=== PATIENT | male | born 1980 | race African-American/Black ===

== ENCOUNTER 2020-09-04 18:54 | Inpatient (IN) | payer OTHER, SELFPAY ==
[2020-09-04] VITALS (11 sets, daily range): BP systolic 129–162; BP diastolic 63–95; PULSE 114–127; RESP 16–28; TEMP 36.6–36.8; O2SAT 95–100; BMI 40.8
--- NOTE | 2020-09-04 19:06 | DI.RAD.S_ITS ---
PROCEDURE: XR CHEST 1V INDICATIONS: suspected sepsis TECHNIQUE: One view of the chest was acquired. COMPARISON: None. FINDINGS: Surgical changes and devices: None. Lungs and pleura: Lungs are clear. No pleural effusions or pneumothorax. Mediastinum: Mediastinal contours appear normal. Heart size is normal. Bones and chest wall: No suspicious bony lesions. Overlying soft tissues appear unremarkable. IMPRESSION: No focal infiltrate, pleural effusion or pneumothorax. Dictated by: Barry Mac M.D. on 09/04/2020 at 19:39 Approved by: Barry Mac M.D. on 09/04/2020 at 19:40
[2020-09-04] MEDS: SODIUM CHLORIDE 0.9% 1,000 ML 1000 ML IV ×3 (19:19→20:58)
[2020-09-04 19:20] LABS: Add Manual Diff / Slide Review NO; Basophils Absolute Auto 0 /uL (0-100); Basophils Percent Auto 0.2 % (0-2); Eosinophils Absolute Auto 0 /uL (0-450); Eosinophils Percent Auto 0.1 % (2-4); Hematocrit 53.7 % (41-53); Hemoglobin 17.2 g/dL (13.5-17.5); Lymphocytes Absolute Auto 1400 /uL (1100-4500); Lymphocytes Percent Auto 20.1 % (25-40); Mean Corpuscular Hemoglobin 29.4 PG (26-34); Mean Corpuscular Volume 91.8 fL (80-100); Monocytes Absolute Auto 400 /uL (0-900); Monocytes Percent Auto 5.8 % (3-14); Neutrophils Absolute Auto 5100 /uL (1500-7000); Neutrophils Percent Auto 73.8 % (50-75); Platelet Count 230 X10^3/uL (150-400); Red Blood Cell Count 5.85 X10^6/uL (4.5-5.9); Red Cell Distribution Width 13.9 % (11.6-14.8)
[2020-09-04 19:26] LABS: COVID19 -Nasal RAPID Negative (Negative)
[2020-09-04 19:30] LABS: Alanine Aminotransferase 86 IU/L (<50); Albumin 5.1 g/dL (3.5-5.0); Albumin Globulin Ratio 1.2 (1.0-2.8); Alkaline Phosphatase 79 U/L (38-126); Aspartate Aminotransferase 37 IU/L (17-59); BUN Creatinine Ratio 19.7 (6-22); Bilirubin Total 0.7 mg/dL (0.2-1.3); Blood Urea Nitrogen 31 mg/dL (9-20); Calcium 9.1 mg/dL (8.4-10.2); Chloride 101 mmol/L (98-107); Globulin 4.1 g/dL (1.7-4.1); Lipase 275 U/L (23-300); Sodium 137 mmol/L (137-145); Total Protein 9.2 g/dL (6.3-8.2)
[2020-09-04 19:31] LABS: HEMOLYSIS 52 (0-50); Lactate (Lactic Acid) 2.2 mmol/L (0.7-2.1); Potassium 5.6 mmol/L (3.4-5.1)
[2020-09-04 19:32] LABS: Carbon Dioxide 7 mmol/L (22-32); Glucose 595 mg/dL (70-100)
[2020-09-04 19:39] LABS: INR 0.9 (0.9-1.3); Prothrombin Time 10.4 SECONDS (10.1-12.7)
[2020-09-04 19:42] LABS: PTT Partial Thromboplastin Tim 29 SECONDS (26.4-36.2)
[2020-09-04 19:45] LABS: Procalcitonin 0.08 ng/mL (<0.5)
[2020-09-04 19:47] LABS: PO2 ABG 96 mmHg (80-100)
[2020-09-04 19:48] LABS: Fractionated Inspired Oxygen 21; HCO3 ABG 10 mmol/L (22-26); Oxygen Saturation ABG 96 % (95-100); TCO2 ABG 10 mmol/L (21-31)
[2020-09-04 19:49] LABS: Ketones (Beta-Hydroxybutyrate) 10.36 mmol/L (<0.27)
[2020-09-04 19:49] LABS: PCO2 ABG 24.3 mmHg (35-45)
[2020-09-04 19:50] LABS: Alanine Aminotransferase 83 IU/L (<50); Albumin Globulin Ratio 1.3 (1.0-2.8); Alkaline Phosphatase 78 U/L (38-126); Aspartate Aminotransferase 36 IU/L (17-59); BUN Creatinine Ratio 19.6 (6-22); Bilirubin Total 0.6 mg/dL (0.2-1.3); Blood Urea Nitrogen 31 mg/dL (9-20); Calcium 9.1 mg/dL (8.4-10.2); Chloride 102 mmol/L (98-107); Estimated Glomerular Filt Rate 49.6 mL/min (>60); HEMOLYSIS 34 (0-50); Potassium 5.2 mmol/L (3.4-5.1); Sodium 137 mmol/L (137-145)
[2020-09-04 19:51] LABS: Carbon Dioxide 8 mmol/L (22-32)
[2020-09-04 19:52] LABS: Glucose 597 mg/dL (70-100)
--- NOTE | 2020-09-04 20:13 | ED_ITS ---
HPI - Weakness General Chief complaint: Weakness Stated complaint: fatigue,disoriented, pain all over Time Seen by Provider: 09/04/20 19:32 Source: patient and family () Mode of arrival: Wheelchair Limitations: no limitations History of Present Illness HPI Narrative: This is a 39-year-old male who comes to the emergency department with complaint of feeling fatigued, generally unwell, he states he has had some blurred vision. He has had some lower back pain on both sides that he has noted for several days. He states symptoms sort of started Tuesday to have been progressive. He denies fevers, no chest pain, no shortness of breath, no nausea or vomiting. Denies any abdominal pain patient has had polyuria as well as polydipsia, he denies any dysuria. No issues with bowel movements or swelling in his extremities. No known past medical history, patient has not been following regularly with a physician. No prior surgeries. No allergies to medications. Patient does not take any medications regularly. No tobacco, alcohol or illicit. He states his father has diabetes but no other family history. Patient has been seen in the past at the [facility]. Related Data Home Medications Medication Instructions Recorded Confirmed No Known Home Medications 09/04/20 09/04/20 Allergies Allergy/AdvReac Type Severity Reaction Status Date / Time No Known Drug Allergies Allergy Verified 09/04/20 19:19 Review of Systems Review of Systems ROS Unobtainable: All systems reviewed & are unremarkable except as noted in HPI and below Patient History Family History (Updated 09/04/20 @ 20:31 by Christina Oakes DO) Father Diabetes mellitus Social History household members: spouse Smoking Status: Never smoker Smoking Status: Never smoker alcohol intake frequency: other Substance Use Type: does not use Exam Narrative Exam Narrative: GENERAL: Alert and oriented x three, well-nourished male in mild distress. HEENT: Head normocephalic, atraumatic, EOMI, pupils reactive, face symmetric, moist mucous membranes NECK: Supple, full range of motion CARDIOVASCULAR: Tachycardic but regular rate and rhythm without murmurs, rubs or gallops. RESPIRATORY: Breath sounds equal bilaterally, no wheezes rales or rhonchi. Positive for tachypnea ABDOMEN: Soft, nontender. Normoactive bowel sounds all 4 quadrants. No guarding or rebound, rigidity, no mass : No CVA tenderness EXTREMITIES: Normal range of motion, no clubbing or edema. Neurovascularly intact NEUROLOGICAL: Cranial nerves II through XII grossly intact. Moving all extremities SKIN: Warm, dry, no petechiae, no rashes or lesions. Initial Vital Signs Initial Vital Signs: Vital Signs Temperature 98 F 09/04/20 19:00 Pulse Rate 125 H 09/04/20 19:00 Respiratory Rate 16 09/04/20 19:00 Blood Pressure 162/95 H 09/04/20 19:00 Pulse Oximetry 98 09/04/20 19:00 Course Orders Ordered: ED Orders 09/04/20 22:50 Phosphorous Stat Acetaminophen (Acetaminophen 325 Mg Tablet) 650 mg PO Q6HR PRN PRN Reason: Fever/Mild Pain (1-3) Al Hydrox/Mg Hydrox/Simethicone (Mag Hydrox/Alum/Simeth 30 Ml Udc) 30 ml PO Q6HR PRN PRN Reason: Dyspepsia Enoxaparin Sodium (Enoxaparin 40 Mg/0.4 Ml Syringe) 40 mg SUBCUT DAILY TARUN Potassium Chloride/Sodium Chloride (Ns With Kcl 20 Meq) 1,000 mls @ 150 mls/hr IV CONT TARUN Last Admin: 09/04/20 21:42 Dose: Not Given Documented by: ROSIE Dextrose/Sodium Chloride (Dextrose 5%-0.45% Ns) 1,000 mls @ 150 mls/hr IV CONT TARUN Last Admin: 09/05/20 03:02 Dose: Not Given Documented by: JOSÉ MIGUEL Sodium Chloride (Normal Saline 0.45%) 1,000 mls @ 150 mls/hr IV CONT TARUN Last Admin: 09/05/20 02:26 Dose: 150 mls/hr Documented by: JOSÉ MIGUEL INSULIN DRIP PREMIX (Myxredlin Drip Premix) 100 unit in 100 mls @ 6 mls/hr IV TITRATE TARUN; Protocol Last Titration: 09/05/20 05:02 Dose: 15 mls/hr Documented by: JOSÉ MIGUEL Cosigned by: OLIVER Titration: 09/05/20 03:59 Dose: 10 mls/hr Documented by: JOSÉ MIGUEL Cosigned by: OLIVER Titration: 09/05/20 03:07 Dose: 8 mls/hr Documented by: JOSÉ MIGUEL Cosigned by: OLIVER Admin: 09/05/20 02:40 Dose: 6 mls/hr Documented by: JOSÉ MIGUEL Halligned by: OLIVER Ketorolac Tromethamine (Ketorolac 10 Mg Tablet) 10 mg PO Q6H PRN PRN Reason: Pain, Moderate (4-6) Lisinopril (Lisinopril 10 Mg Tablet) 10 mg PO DAILY TARUN Naloxone HCl (Naloxone 0.4 Mg/Ml Vial) 0.2 mg IV Q2MIN PRN PRN Reason: Opiate Reversal Ondansetron HCl (Ondansetron 4 Mg Odt) 4 mg PO Q8HR PRN PRN Reason: Nausea And Vomiting Ondansetron HCl (Ondansetron 4 Mg/2 Ml Inj) 4 mg IV Q4HR PRN PRN Reason: Nausea And Vomiting Discontinued Medications Sodium Chloride (Normal Saline 0.9%) 1,000 mls @ 1,000 mls/hr IV BOLUS ONE Stop: 09/04/20 20:05 Last Infusion: 09/04/20 21:33 Dose: 0 mls/hr Documented by: Admin: 09/04/20 19:19 Dose: 1,000 mls/hr Documented by: JENNA Sodium Chloride (Normal Saline 0.9%) 1,000 mls @ 1,000 mls/hr IV BOLUS ONE Stop: 09/04/20 20:32 Last Admin: 09/04/20 20:14 Dose: 1,000 mls/hr Documented by: ROSIE Sodium Chloride (Normal Saline 0.9%) 1,000 mls @ 1,000 mls/hr IV BOLUS ONE Stop: 09/04/20 21:14 Last Admin: 09/04/20 20:58 Dose: 1,000 mls/hr Documented by: ROSIE INSULIN DRIP PREMIX (Myxredlin Drip Premix) 100 unit in 100 mls @ 10 mls/hr IV TITRATE TARUN; Protocol Last Admin: 09/04/20 21:33 Dose: Not Given Documented by: ROSIE Dextrose/Sodium Chloride (Dextrose 5%-0.45% Ns) 1,000 mls @ 150 mls/hr IV CONT TARUN Last Admin: 09/05/20 03:19 Dose: Not Given Documented by: JOSÉ MIGUEL Insulin Human Regular 100 unit (/ Sodium Chloride) 100 mls @ 6 mls/hr IV TITRATE TARUN; Protocol Last Admin: 09/05/20 03:20 Dose: Not Given Documented by: JOSÉ MIGUEL Insulin Human Regular (Insulin Regular 100 Unit/Ml 3 Ml Vial) 5 unit SUBCUT NOW ONE Stop: 09/04/20 22:35 Last Admin: 09/04/20 22:46 Dose: 5 unit Documented by: JOSÉ MIGUEL Cosigned by: PAIGE Insulin Human Regular (Insulin Regular 100 Unit/Ml 3 Ml Vial) 10 unit SUBCUT NOW ONE Stop: 09/04/20 23:37 Last Admin: 09/04/20 23:50 Dose: 10 unit Documented by: JOSÉ MIGUEL Cosigned by: OLIVER Insulin Human Regular (Insulin Regular 100 Unit/Ml 3 Ml Vial) 20 unit SUBCUT NOW ONE Stop: 09/05/20 00:42 Last Admin: 09/05/20 00:54 Dose: 20 unit Documented by: JOSÉ MIGUEL Cosigned by: OLIVER Lisinopril (Lisinopril 10 Mg Tablet) 10 mg PO NOW ONE Stop: 09/04/20 23:40 Last Admin: 09/04/20 23:54 Dose: 10 mg Documented by: JOSÉ MIGUEL Vital Signs Vital signs: Vital Signs - 8 hr 09/04/20 19:00 09/04/20 20:00 09/04/20 20:03 Temperature 98 F Pulse Rate 125 H 118 H 117 H Respiratory Rate 16 26 H Blood Pressure 162/95 H 129/63 Pulse Oximetry 98 99 96 09/04/20 20:30 09/04/20 21:00 Temperature Pulse Rate 117 H 116 H Respiratory Rate 27 H 27 H Blood Pressure 139/69 Pulse Oximetry 99 MDM - Weakness Lab Data Attestation: I reviewed the patient's lab results. Result diagrams: 09/05/20 04:30 09/04/20 22:50 Labs: Lab Results 09/04/20 09/04/20 09/04/20 Range/Units 19:02 19:07 19:07 WBC 7.0 (4.5-11.0) X10^3/uL RBC 5.85 (4.5-5.9) X10^6/uL Hgb 17.2 (13.5-17.5) g/dL Hct 53.7 H (41-53) % MCV 91.8 (80-100) fL MCH 29.4 (26-34) PG MCHC 32.0 (30-36) % RDW 13.9 (11.6-14.8) % Plt Count 230 (150-400) X10^3/uL Neut % (Auto) 73.8 (50-75) % Lymph % (Auto) 20.1 L (25-40) % Mcintosh % (Auto) 5.8 (3-14) % Eos % (Auto) 0.1 L (2-4) % Baso % (Auto) 0.2 (0-2) % Neut # (Auto) 5100 (9849-7873) /uL Lymph # (Auto) 1400 (1228-3526) /uL Mcintosh # (Auto) 400 (0-900) /uL Eos # (Auto) 0 (0-450) /uL Baso # (Auto) 0 (0-100) /uL PT (10.1-12.7) SECONDS INR (0.9-1.3) APTT (26.4-36.2) SECONDS ABG pH (7.35-7.45) ABG pCO2 (35-45) mmHg ABG pO2 (80-100) mmHg ABG HCO3 (22-26) mmol/L ABG Total CO2 (21-31) mmol/L ABG O2 Saturation (95-100) % ABG Base Excess (-2-2) mmol/L FiO2 Sodium (137-145) mmol/L Potassium (3.4-5.1) mmol/L Chloride (98-107) mmol/L Carbon Dioxide (22-32) mmol/L BUN (9-20) mg/dL Creatinine (0.66-1.25) mg/dL Estimated GFR (>60) mL/min BUN/Creatinine Ratio (6-22) Glucose (70-100) mg/dL Lactate (0.7-2.1) mmol/L Calcium (8.4-10.2) mg/dL Total Bilirubin (0.2-1.3) mg/dL AST (17-59) IU/L ALT (<50) IU/L Alkaline Phosphatase (38-126) U/L Total Protein (6.3-8.2) g/dL Albumin (3.5-5.0) g/dL Globulin (1.7-4.1) g/dL Albumin/Globulin Ratio (1.0-2.8) Lipase (23-300) U/L Procalcitonin 0.08 (<0.5) ng/mL Urine Color Urine Appearance Urine pH (4.5-8.0) Ur Specific [place] (1.000-1.035) Urine Protein (Negative) Urine Glucose (UA) (Negative) g/dL Urine Ketones (NEGATIVE) Urine Occult Blood (Negative) Urine Nitrate (Negative) Urine Bilirubin (NEGATIVE) Urine Urobilinogen (0.2) E.U./dL Ur Leukocyte Esterase (NEGATIVE) Urine RBC (0-5/HPF) Urine WBC (0-5/HPF) Ur Squamous Epith Cells (0-5/HPF) Ur Transition Epith Cell (0-5/HPF) Ur Renal Epithelial Cell (0-1/HPF) Amorphous Sediment Urine Bacteria (None) Hyaline Casts (None) Granular Casts (None) Ur Culture Indicated? U Opiates 300ng/mL cut (Negative) Ur Oxycodone Screen (Negative) Urine Methadone Screen (Negative) Ur Barbiturates Screen (Negative) U Tricyclic Antidepress (Negative) Ur Phencyclidine Scrn (Negative) Ur Amphetamines Screen (Negative) U Methamphetamines Scrn (Negative) Ur MDMA Scrn (Ecstasy) (Negative) U Benzodiazepines Scrn (Negative) Urine Cocaine Screen (Negative) U Marijuana (THC) Screen (Negative) Ketones (<0.27) mmol/L SARS-CoV-2 (PCR) Negative (Negative) Influenza A (RT-PCR) (NEGATIVE) Influenza B (RT-PCR) (NEGATIVE) 09/04/20 09/04/20 09/04/20 Range/Units 19:07 19:07 19:25 WBC (4.5-11.0) X10^3/uL RBC (4.5-5.9) X10^6/uL Hgb (13.5-17.5) g/dL Hct (41-53) % MCV (80-100) fL MCH (26-34) PG MCHC (30-36) % RDW (11.6-14.8) % Plt Count (150-400) X10^3/uL Neut % (Auto) (50-75) % Lymph % (Auto) (25-40) % Mcintosh % (Auto) (3-14) % Eos % (Auto) (2-4) % Baso % (Auto) (0-2) % Neut # (Auto) (4257-5996) /uL Lymph # (Auto) (3427-0613) /uL Mcintosh # (Auto) (0-900) /uL Eos # (Auto) (0-450) /uL Baso # (Auto) (0-100) /uL PT 10.4 (10.1-12.7) SECONDS INR 0.9 (0.9-1.3) APTT 29 (26.4-36.2) SECONDS ABG pH (7.35-7.45) ABG pCO2 (35-45) mmHg ABG pO2 (80-100) mmHg ABG HCO3 (22-26) mmol/L ABG Total CO2 (21-31) mmol/L ABG O2 Saturation (95-100) % ABG Base Excess (-2-2) mmol/L FiO2 Sodium 137 (137-145) mmol/L Potassium 5.6 H (3.4-5.1) mmol/L Chloride 101 (98-107) mmol/L Carbon Dioxide 7 L* (22-32) mmol/L BUN 31 H (9-20) mg/dL Creatinine 1.57 H (0.66-1.25) mg/dL Estimated GFR 50.0 L (>60) mL/min BUN/Creatinine Ratio 19.7 (6-22) Glucose 595 H* (70-100) mg/dL Lactate 2.2 H (0.7-2.1) mmol/L Calcium 9.1 (8.4-10.2) mg/dL Total Bilirubin 0.7 (0.2-1.3) mg/dL AST 37 (17-59) IU/L ALT 86 H (<50) IU/L Alkaline Phosphatase 79 (38-126) U/L Total Protein 9.2 H (6.3-8.2) g/dL Albumin 5.1 H (3.5-5.0) g/dL Globulin 4.1 (1.7-4.1) g/dL Albumin/Globulin Ratio 1.2 (1.0-2.8) Lipase 275 (23-300) U/L Procalcitonin (<0.5) ng/mL Urine Color Urine Appearance Urine pH (4.5-8.0) Ur Specific [place] (1.000-1.035) Urine Protein (Negative) Urine Glucose (UA) (Negative) g/dL Urine Ketones (NEGATIVE) Urine Occult Blood (Negative) Urine Nitrate (Negative) Urine Bilirubin (NEGATIVE) Urine Urobilinogen (0.2) E.U./dL Ur Leukocyte Esterase (NEGATIVE) Urine RBC (0-5/HPF) Urine WBC (0-5/HPF) Ur Squamous Epith Cells (0-5/HPF) Ur Transition Epith Cell (0-5/HPF) Ur Renal Epithelial Cell (0-1/HPF) Amorphous Sediment Urine Bacteria (None) Hyaline Casts (None) Granular Casts (None) Ur Culture Indicated? U Opiates 300ng/mL cut (Negative) Ur Oxycodone Screen (Negative) Urine Methadone Screen (Negative) Ur Barbiturates Screen (Negative) U Tricyclic Antidepress (Negative) Ur Phencyclidine Scrn (Negative) Ur Amphetamines Screen (Negative) U Methamphetamines Scrn (Negative) Ur MDMA Scrn (Ecstasy) (Negative) U Benzodiazepines Scrn (Negative) Urine Cocaine Screen (Negative) U Marijuana (THC) Screen (Negative) Ketones (<0.27) mmol/L SARS-CoV-2 (PCR) (Negative) Influenza A (RT-PCR) (NEGATIVE) Influenza B (RT-PCR) (NEGATIVE) 09/04/20 09/04/20 09/04/20 Range/Units 19:25 19:41 19:55 WBC (4.5-11.0) X10^3/uL RBC (4.5-5.9) X10^6/uL Hgb (13.5-17.5) g/dL Hct (41-53) % MCV (80-100) fL MCH (26-34) PG MCHC (30-36) % RDW (11.6-14.8) % Plt Count (150-400) X10^3/uL Neut % (Auto) (50-75) % Lymph % (Auto) (25-40) % Mcintosh % (Auto) (3-14) % Eos % (Auto) (2-4) % Baso % (Auto) (0-2) % Neut # (Auto) (7879-0565) /uL Lymph # (Auto) (4009-6318) /uL Mcintosh # (Auto) (0-900) /uL Eos # (Auto) (0-450) /uL Baso # (Auto) (0-100) /uL PT (10.1-12.7) SECONDS INR (0.9-1.3) APTT (26.4-36.2) SECONDS ABG pH 7.20 L* (7.35-7.45) ABG pCO2 24.3 L* (35-45) mmHg ABG pO2 96 (80-100) mmHg ABG HCO3 10 L (22-26) mmol/L ABG Total CO2 10 L (21-31) mmol/L ABG O2 Saturation 96 (95-100) % ABG Base Excess -18.0 L (-2-2) mmol/L FiO2 21 Sodium 137 (137-145) mmol/L Potassium 5.2 H (3.4-5.1) mmol/L Chloride 102 (98-107) mmol/L Carbon Dioxide 8 L* (22-32) mmol/L BUN 31 H (9-20) mg/dL Creatinine 1.58 H (0.66-1.25) mg/dL Estimated GFR 49.6 L (>60) mL/min BUN/Creatinine Ratio 19.6 (6-22) Glucose 597 H* (70-100) mg/dL Lactate (0.7-2.1) mmol/L Calcium 9.1 (8.4-10.2) mg/dL Total Bilirubin 0.6 (0.2-1.3) mg/dL AST 36 (17-59) IU/L ALT 83 H (<50) IU/L Alkaline Phosphatase 78 (38-126) U/L Total Protein 9.0 H (6.3-8.2) g/dL Albumin 5.0 (3.5-5.0) g/dL Globulin 4.0 (1.7-4.1) g/dL Albumin/Globulin Ratio 1.3 (1.0-2.8) Lipase (23-300) U/L Procalcitonin (<0.5) ng/mL Urine Color Yellow Urine Appearance Clear Urine pH 5.5 (4.5-8.0) Ur Specific [place] 1.020 (1.000-1.035) Urine Protein 2+ H (Negative) Urine Glucose (UA) 1+ H (Negative) g/dL Urine Ketones 3+ H (NEGATIVE) Urine Occult Blood 3+ H (Negative) Urine Nitrate Negative (Negative) Urine Bilirubin Negative (NEGATIVE) Urine Urobilinogen 0.2 (0.2) E.U./dL Ur Leukocyte Esterase Negative (NEGATIVE) Urine RBC 1-5/hpf (0-5/HPF) Urine WBC 0-1/hpf (0-5/HPF) Ur Squamous Epith Cells 0-1 /hpf (0-5/HPF) Ur Transition Epith Cell 0-1/hpf (0-5/HPF) Ur Renal Epithelial Cell 0-1/hpf (0-1/HPF) Amorphous Sediment 1+ Urine Bacteria None seen (None) Hyaline Casts 1-5/lpf (None) Granular Casts 0-1/lpf (None) Ur Culture Indicated? Cult not indicated U Opiates 300ng/mL cut (Negative) Ur Oxycodone Screen (Negative) Urine Methadone Screen (Negative) Ur Barbiturates Screen (Negative) U Tricyclic Antidepress (Negative) Ur Phencyclidine Scrn (Negative) Ur Amphetamines Screen (Negative) U Methamphetamines Scrn (Negative) Ur MDMA Scrn (Ecstasy) (Negative) U Benzodiazepines Scrn (Negative) Urine Cocaine Screen (Negative) U Marijuana (THC) Screen (Negative) Ketones 10.36 H (<0.27) mmol/L SARS-CoV-2 (PCR) (Negative) Influenza A (RT-PCR) (NEGATIVE) Influenza B (RT-PCR) (NEGATIVE) 09/04/20 09/04/20 Range/Units 19:55 21:10 WBC (4.5-11.0) X10^3/uL RBC (4.5-5.9) X10^6/uL Hgb (13.5-17.5) g/dL Hct (41-53) % MCV (80-100) fL MCH (26-34) PG MCHC (30-36) % RDW (11.6-14.8) % Plt Count (150-400) X10^3/uL Neut % (Auto) (50-75) % Lymph % (Auto) (25-40) % Mcintosh % (Auto) (3-14) % Eos % (Auto) (2-4) % Baso % (Auto) (0-2) % Neut # (Auto) (0811-8183) /uL Lymph # (Auto) (3561-7481) /uL Mcintosh # (Auto) (0-900) /uL Eos # (Auto) (0-450) /uL Baso # (Auto) (0-100) /uL PT (10.1-12.7) SECONDS INR (0.9-1.3) APTT (26.4-36.2) SECONDS ABG pH (7.35-7.45) ABG pCO2 (35-45) mmHg ABG pO2 (80-100) mmHg ABG HCO3 (22-26) mmol/L ABG Total CO2 (21-31) mmol/L ABG O2 Saturation (95-100) % ABG Base Excess (-2-2) mmol/L FiO2 Sodium (137-145) mmol/L Potassium (3.4-5.1) mmol/L Chloride (98-107) mmol/L Carbon Dioxide (22-32) mmol/L BUN (9-20) mg/dL Creatinine (0.66-1.25) mg/dL Estimated GFR (>60) mL/min BUN/Creatinine Ratio (6-22) Glucose (70-100) mg/dL Lactate (0.7-2.1) mmol/L Calcium (8.4-10.2) mg/dL Total Bilirubin (0.2-1.3) mg/dL AST (17-59) IU/L ALT (<50) IU/L Alkaline Phosphatase (38-126) U/L Total Protein (6.3-8.2) g/dL Albumin (3.5-5.0) g/dL Globulin (1.7-4.1) g/dL Albumin/Globulin Ratio (1.0-2.8) Lipase (23-300) U/L Procalcitonin (<0.5) ng/mL Urine Color Urine Appearance Urine pH (4.5-8.0) Ur Specific [place] (1.000-1.035) Urine Protein (Negative) Urine Glucose (UA) (Negative) g/dL Urine Ketones (NEGATIVE) Urine Occult Blood (Negative) Urine Nitrate (Negative) Urine Bilirubin (NEGATIVE) Urine Urobilinogen (0.2) E.U./dL Ur Leukocyte Esterase (NEGATIVE) Urine RBC (0-5/HPF) Urine WBC (0-5/HPF) Ur Squamous Epith Cells (0-5/HPF) Ur Transition Epith Cell (0-5/HPF) Ur Renal Epithelial Cell (0-1/HPF) Amorphous Sediment Urine Bacteria (None) Hyaline Casts (None) Granular Casts (None) Ur Culture Indicated? U Opiates 300ng/mL cut Negative (Negative) Ur Oxycodone Screen Negative (Negative) Urine Methadone Screen Negative (Negative) Ur Barbiturates Screen Negative (Negative) U Tricyclic Antidepress Negative (Negative) Ur Phencyclidine Scrn Negative (Negative) Ur Amphetamines Screen Negative (Negative) U Methamphetamines Scrn Negative (Negative) Ur MDMA Scrn (Ecstasy) Negative (Negative) U Benzodiazepines Scrn Negative (Negative) Urine Cocaine Screen Negative (Negative) U Marijuana (THC) Screen Negative (Negative) Ketones (<0.27) mmol/L SARS-CoV-2 (PCR) (Negative) Influenza A (RT-PCR) Flu a negative (NEGATIVE) Influenza B (RT-PCR) Flu b negative (NEGATIVE) Point of Care Testing Glucose POC 380 Urine Dip Bedside Urine Glucose 1000 mg/dl Bedside Urine Bilirubin - Negative Bedside Urine Ketone +++ 80 Urine Specific [place] 1.025 Bedside Urine Occult Blood ++ Bedside Urine pH 6.0 Bedside Urine Protein + 30 Bedside Urine Urobilinogen - Negative Bedside Urine Nitrite - Negative Bedside Urine Leukocytes - Negative Esterase Imaging Data Chest x-ray: Radiologist Impression: [address] [id number] ReportSigned Patient: Nicholas Burrell#: [id number]: 1980Acct:[id number]/Sex: 39 / MDate of Service: 09/04/20Loc: EDAccession Number: [id number] Procedure: XR chest 1V Ordering Provider: Christina Oakes D.O. PROCEDURE: XR CHEST 1V INDICATIONS: suspected sepsis TECHNIQUE: One view of the chest was acquired. COMPARISON: None. FINDINGS: Surgical changes and devices: None. Lungs and pleura: Lungs are clear. No pleural effusions or pneumothorax. Mediastinum: Mediastinal contours appear normal. Heart size is normal. Bones and chest wall: No suspicious bony lesions. Overlying soft tissues appear unremarkable. IMPRESSION: No focal infiltrate, pleural effusion or pneumothorax. Dictated by: Barry Mac M.D. on 09/04/2020 at 19:39 Approved by: Barry Mac M.D. on 09/04/2020 at 19:40 KUB: Radiologist Impression: [address] [id number] Scan ReportSigned Patient: Nicholas BurrellMR#: [id number]: 1980Acct:[id number]/Sex: 39 / MDate of Service: 09/04/20Loc: EDAccession Number: [id number] Procedure: CT kidney ureter bladder (KUB) Ordering Provider: Christina Oakes D.O. PROCEDURE: CT KIDNEY URETER BLADDER (KUB) INDICATIONS: dka, hematuria, back pain TECHNIQUE: Noncontrast 5 mm thick sections acquired from the diaphragms to the symphysis. 5 mm thick coronal and sagittal reformats were then performed. For radiation dose reduction, the following was used: automated exposure control, adjustment of mA and/or kV according to patient size. COMPARISON: None. FINDINGS: Image quality: Excellent. Lung bases: Lung bases are clear. Heart size is normal. Urinary system: Both kidneys are normal in size. No kidney stones. No hydronephrosis or perinephric fat stranding. Both ureters appear non-dilated throughout their expected courses. Bladder wall thickness is normal; no calcified bladder stones. Other solid organs: Liver is normal in size. Moderate to severe hepatic steatosis is seen. Gallbladder is within normal limits.. Pancreas is normal in contours. Spleen is normal in size. No adrenal nodules. Peritoneum and bowel: Unenhanced bowel loops demonstrate normal wall thickness and caliber. No free fluid or air. Appendix is visualized and is within normal limits. Nodes and vessels: No retroperitoneal or mesenteric adenopathy by size criteria. Aorta and inferior vena cava are normal in caliber. Abdominal wall: No ventral hernias. Pelvis: No free pelvic fluid. No inguinal hernias or adenopathy. Bones: No suspicious bony lesions. No vertebral body compression fractures. IMPRESSION: 1. No renal stone or hydronephrosis. Normal appearing bilateral ureters and urinary bladder. 2. Severe hepatic steatosis. No discrete hepatic lesion. 3. Normal appendix. No bowel obstruction. No abnormal bowel wall thickening. No free fluid or free air. Dictated by: Barry Mac M.D. on 09/04/2020 at 20:52 Approved by: Barry Mac M.D. on 09/04/2020 at 20:56 ECG Data Attestation: I personally reviewed and interpreted this ECG as follows: Interpretation: Sinus tachycardia, rate of 125, MO 148, QRS 86 and QTC of 450. Nonspecific change. MDM Narrative Medical decision making narrative: This is a 39-year-old male with no known prior diagnosed diabetes in DKA. Patient is acidotic, his bicarb is of 27 on corrected. Patient has likely acute kidney injury but with a creatinine 1.58 and glucose of 597. On point of care urine and he has been complaining of some lower back pain so CT KUB was ordered to evaluate for stones. No signs of infection on urine. covid swab is negative. Patient accepted by [facility]. Insulin gtt ordered and NS 150 w/ 20meq Kl ordered but they would like to try subcutaneous insulin is patient's glucose has dropped very quickly on recheck with Accu-Chek. Orders were given by the nurse practitioner to nursing patient was transferred to the ICU. Critical Care Time Critical Care Time Critical Care Time: Yes Total Critical Care Time: 90 Attestation: The high probability of a clinically significant, sudden or life threatening deterioration of the [cardiac, pulm, neuro] system(s) required my full and direct attention, intervention and personal management. The aggregate critical care time was [90] minutes. This time is in addition to time spent performing reported procedures but includes the following: [x] Data Review and interpretation [x] Patient assessment and monitoring of vital signs [x] Documentation [x] Medication orders and management Discharge Plan Departure Patient Disposition: Admitted As Inpatient Clinical Impression: DKA (diabetic ketoacidoses), Acute kidney injury Admit Date/Time: 09/04/20 21:14 Admit Provider: Cheyanne Samuel
[2020-09-04 20:14] LABS: Bacteria Urine None Seen
[2020-09-04 20:15] LABS: Appearance Urine UA CLEAR; Bilirubin Urine UA NEGATIVE (NEGATIVE); Color Urine UA YELLOW; Glucose Urine UA 1+ g/dL (Negative); Ketones Urine UA 3+ (NEGATIVE); Leukocyte Esterase Urine UA NEGATIVE (NEGATIVE); Nitrite Urine UA NEGATIVE (Negative); Occult Blood Urine UA 3+ (Negative); Protein Urine UA 2+ (Negative); Urobilinogen Urine UA 0.2 E.U./dL (0.2); pH Urine UA 5.5 (4.5-8.0)
[2020-09-04 20:27] LABS: Amorphous Sediment Urine 1+; Culture Indicated Urine Cult Not Indicated; Granular Casts Urine 0-1/LPF; Hyaline Casts Urine 1-5/LPF; RBC Urine 1-5/HPF (0-5/HPF); Renal Epithelial Cells Urine 0-1/HPF (0-1/HPF); Squamous Epithelial Cell Urine 0-1 /HPF (0-5/HPF); Transitional Epi Cells Urine 0-1/HPF (0-5/HPF); WBC Urine 0-1/HPF (0-5/HPF)
--- NOTE | 2020-09-04 20:29 | DI.CT.S_ITS ---
PROCEDURE: CT KIDNEY URETER BLADDER (KUB) INDICATIONS: dka, hematuria, back pain TECHNIQUE: Noncontrast 5 mm thick sections acquired from the diaphragms to the symphysis. 5 mm thick coronal and sagittal reformats were then performed. For radiation dose reduction, the following was used: automated exposure control, adjustment of mA and/or kV according to patient size. COMPARISON: None. FINDINGS: Image quality: Excellent. Lung bases: Lung bases are clear. Heart size is normal. Urinary system: Both kidneys are normal in size. No kidney stones. No hydronephrosis or perinephric fat stranding. Both ureters appear non-dilated throughout their expected courses. Bladder wall thickness is normal; no calcified bladder stones. Other solid organs: Liver is normal in size. Moderate to severe hepatic steatosis is seen. Gallbladder is within normal limits.. Pancreas is normal in contours. Spleen is normal in size. No adrenal nodules. Peritoneum and bowel: Unenhanced bowel loops demonstrate normal wall thickness and caliber. No free fluid or air. Appendix is visualized and is within normal limits. Nodes and vessels: No retroperitoneal or mesenteric adenopathy by size criteria. Aorta and inferior vena cava are normal in caliber. Abdominal wall: No ventral hernias. Pelvis: No free pelvic fluid. No inguinal hernias or adenopathy. Bones: No suspicious bony lesions. No vertebral body compression fractures. IMPRESSION: 1. No renal stone or hydronephrosis. Normal appearing bilateral ureters and urinary bladder. 2. Severe hepatic steatosis. No discrete hepatic lesion. 3. Normal appendix. No bowel obstruction. No abnormal bowel wall thickening. No free fluid or free air. Dictated by: Barry Mac M.D. on 09/04/2020 at 20:52 Approved by: Barry Mac M.D. on 09/04/2020 at 20:56
[2020-09-04 21:15] LABS: Reflexed Lactate in 2 Hours Y
--- NOTE | 2020-09-04 21:23 | PC.NURSE ---
Notified Dr Samuel of BG of 380, order to hold insulin, and recheck in 1 hr while hydrating.
[2020-09-04 21:53] LABS: Influenza A - CEPHEID Flu A NEGATIVE (NEGATIVE); Influenza B - CEPHEID Flu B NEGATIVE (NEGATIVE)
--- NOTE | 2020-09-04 22:39 | RT ---
Addendum entered by Elvia Jay, RT 09/04/20 23:55: Discussed with OSWALD Samuel that ABG Q4 until pH to normalizes is inappropriate at this time. VBGs will suffice for pH readings. OSWALD Samuel aware of VBGs Q4 instead of ABGs. Pending new lab orders from OSWALD Samuel. RN aware as well. Addendum entered by Elvia Jay, RT 09/04/20 22:46: Discussed with OSWALD Samuel that ABG Q4 for pH to normalize is inappropriate at this time. VBGs will suffice for pH readings. OSWALD Samuel aware of VBGs Q4 instead of ABGs. Pending new lab orders. RN aware as well. Original Note: Discussed with OSWALD Samuel that ABG Q4 for pH to normalize is inappropriate at this time. VBGs will suffice for pH readings. OSWALD Samuel aware of VBGs Q4 instead of ABGs. Pending new lab orders.
[2020-09-04] MEDS: INSULIN REGULAR 100 UNIT/ML 3 ML VIAL SUBCUT (22:46)
[2020-09-04 23:10] LABS: UR Morphine/Opiate cutoff 300 Negative (Negative); Ur Creatinine 20 (Normal); Ur Specific Gravity 1.025 (Normal); Urine Amphetamines Negative (Negative); Urine Barbiturates Negative (Negative); Urine Benzodiazepines Negative (Negative); Urine Cocaine Negative (Negative); Urine MDMA Negative (Negative); Urine Methadone Negative (Negative); Urine Methamphetamines Negative (Negative); Urine Oxycodone Negative (Negative); Urine Phencyclidine Negative (Negative); Urine Tetrahydrocannabinol Negative (Negative); Urine Tricyclic Antidepressant Negative (Negative); Urine pH 5 (Normal)
--- NOTE | 2020-09-04 23:14 | PC.NURSE ---
Addendum entered by Mary Beasley R.N. 09/05/20 07:46: 0630 pt more somolant and lethargic Jimmie HERRERA at bedside. Addendum entered by Mary Beasley R.N. 09/05/20 06:57: 0620 notified Jimmie of patients blood pressure. Pt reports feeling fine, lethargic. TO to start pt on levophed gtt per protocol. Pt started on levophed and BP continues to drop. Gtt increased to 25 mcg/min. Pt BP now at 89/49. [facility] Addendum entered by Mary Beasley R.N. 09/05/20 05:44: Jimmie HERRERA notified or insulin gtt levels and blood sugar levels. Lab unable to draw morning labs this am and unable to draw from line. SHARON Samuel notified via telephone. TO to have PICC line placed. Addendum entered by Mary Beasley R.N. 09/05/20 01:22: 0040 TO give 20 units R insulin for blood sugar of 326 Addendum entered by Mary Beasley R.N. 09/05/20 00:32: at 2335 pt blood sugar at 321. Notified SHARON Samuel. TO to give 10 units R insulin and recheck Blood sugar in 30 mins. Notified SHARON of critical Co2 of 7 Original Note: Notified Jimmie HERRERA of blood sugar of 428, TO to give insulin R 5 units and recheck in 15 mins. Blood sugar recheck 372. Jimmie notified. TO to recheck in 15 mins and give 10 units R if blood sugar greater than 350. [facility]
[2020-09-04 23:28] LABS: PTT Partial Thromboplastin Tim 25 SECONDS (26.4-36.2)
[2020-09-04 23:33] LABS: Lactate 2HR (Lactic Acid Rflx) 1.7 mmol/L (0.7-2.1)
[2020-09-04 23:34] LABS: Phosphorous 3.9 mg/dL (2.5-4.5)
[2020-09-04 23:35] LABS: Magnesium 2.3 mg/dL (1.6-2.3)
[2020-09-04 23:36] LABS: Amylase 294 U/L (30-110); BUN Creatinine Ratio 19.6 (6-22); Blood Urea Nitrogen 27 mg/dL (9-20); Calcium 8.2 mg/dL (8.4-10.2); Chloride 111 mmol/L (98-107); Glucose 451 mg/dL (70-100); HEMOLYSIS < 15 (0-50); Salicylate < 1.0 mg/dL (<20); Sodium 142 mmol/L (137-145)
[2020-09-04 23:40] LABS: Carbon Dioxide 7 mmol/L (22-32)
[2020-09-04 23:44] LABS: NT-proBNP (BNP-Adult 18+) < 11 pg/mL (<125)
[2020-09-04] MEDS: INSULIN REGULAR 100 UNIT/ML 3 ML VIAL 10 UNIT SUBCUT (23:50)
[2020-09-04] MEDS: lisinopriL 10 MG TABLET PO (23:54)
[2020-09-05] VITALS (42 sets, daily range): BP systolic 61–155; BP diastolic 35–80; PULSE 78–114; RESP 15–23; TEMP 35.7–37; O2SAT 85–100
[2020-09-05 00:05] LABS: TSH w/ Reflex to FT4 0.57 uIU/mL (0.47-4.68)
[2020-09-05 00:34] LABS: HCO3 ABG 9 mmol/L (22-26); Oxygen Saturation ABG 98 % (95-100); PCO2 ABG 25.6 mmHg (35-45); PO2 ABG 127 mmHg (80-100); TCO2 ABG 10 mmol/L (21-31); pH ABG 7.16 (7.35-7.45)
[2020-09-05 00:35] LABS: Fractionated Inspired Oxygen 28
[2020-09-05] MEDS: INSULIN REGULAR 100 UNIT/ML 3 ML VIAL 20 UNIT SUBCUT (00:54)
--- NOTE | 2020-09-05 01:23 | PC.ADMIT ---
[address] [facility] Admission Note: Pt arrived to unit 2205 via w/c, transferred SBA to bed. chano with patient and helped provide hx. Pt reports being hot and slightly dizzy. SHARON Samuel notified of blood sugar levels. VO to not start K+ IV order and not to start D51/2 NS at this time, will continue to watch sugar levels. Pt voiding to urinal without issues. The patient,Nicholas Burrell,39 y/o, was given written information regarding hospital policies, unit procedures and contact persons. Patient's smoking status: Never smoker. Vital Signs - 8 hr 09/04/20 19:00 09/04/20 20:00 09/04/20 20:03 Temperature 98 F Pulse Rate 125 H 118 H 117 H Respiratory Rate 16 26 H Blood Pressure 162/95 H 129/63 Pulse Oximetry 98 99 96 09/04/20 20:30 09/04/20 21:00 09/04/20 21:30 Temperature Pulse Rate 117 H 116 H 124 H Respiratory Rate 27 H 27 H 24 Blood Pressure 139/69 Pulse Oximetry 99 100 09/04/20 21:31 09/04/20 22:05 09/04/20 22:26 Temperature 98.2 F Pulse Rate 122 H 127 H Respiratory Rate 28 H 27 H Blood Pressure 152/89 H 141/81 H Pulse Oximetry 99 100 99 09/04/20 23:40 09/04/20 23:54 09/05/20 00:10 Temperature 98.1 F Pulse Rate 114 H 114 H Respiratory Rate 23 Blood Pressure 155/77 H 155/77 H Pulse Oximetry 95 100
[2020-09-05] MEDS: SODIUM CHLORIDE 0.45% 1,000 ML 150 ML IV ×2 (02:26→10:09)
[2020-09-05] MEDS: INSULIN DRIP PREMIX 100 UNIT/100 ML PLAST..BAG 6 UNIT IV (02:40)
[2020-09-05 05:29] LABS: Add Manual Diff / Slide Review NO; Basophils Absolute Auto 0 /uL (0-100); Basophils Percent Auto 0.2 % (0-2); Eosinophils Absolute Auto 0 /uL (0-450); Eosinophils Percent Auto 0.1 % (2-4); Hematocrit 49.5 % (41-53); Hemoglobin 15.9 g/dL (13.5-17.5); Lymphocytes Absolute Auto 1500 /uL (1100-4500); Lymphocytes Percent Auto 24.7 % (25-40); Mean Corpuscular HGB Conc 32.1 % (30-36); Mean Corpuscular Hemoglobin 29.8 PG (26-34); Mean Corpuscular Volume 92.7 fL (80-100); Monocytes Absolute Auto 400 /uL (0-900); Monocytes Percent Auto 5.9 % (3-14); Neutrophils Absolute Auto 4300 /uL (1500-7000); Neutrophils Percent Auto 69.1 % (50-75); Platelet Count 167 X10^3/uL (150-400); Red Blood Cell Count 5.33 X10^6/uL (4.5-5.9); Red Cell Distribution Width 13.7 % (11.6-14.8); White Blood Cell Count 6.2 X10^3/uL (4.5-11.0)
--- NOTE | 2020-09-05 06:02 | PM.HP.1 ---
History of Present Illness History of Present Illness Date Patient Seen: 09/04/20 Time Patient Seen: 22:21 Chief complaint: fatigue,disoriented, pain all over Narrative: This is a 39-year-old male who comes to the emergency department with complaint of feeling fatigued, generally unwell, he states he has had some blurred vision. He has had some lower back pain on both sides that he has noted for several days. He states symptoms sort of started Tuesday to have been progressive. He denies fevers, no chest pain, no shortness of breath, no nausea or vomiting. Denies any abdominal pain patient has had polyuria as well as polydipsia, he denies any dysuria. No issues with bowel movements or swelling in his extremities. Patient reports a history of sleep apnea and uses a CPAP at night but no other known past medical history, patient has not been following regularly with a physician. No prior surgeries. No allergies to medications. Patient does not take any medications regularly. No tobacco, alcohol or illicit. He states his father has diabetes but no other family history. Patient has been seen in the past at the [facility]. Patient's vital upon presentation temp 98?, BP 162/95, HR 125, RR 16, SaO2 98%, the ABGs: PH 7.2, pCO2 24.3, HC03 10, CO2 10, excess -18, anion gap of 26 lactate 2.2, GFR 49.6, BUN 31, chloride 102, bicarb 8, creatinine 1.58, potassium 5.2, glucose 597, ALT 83, procalcitonin 0.08. CT KUB showed severe hepatic stenosis. Patient was admitted for DKA, new onset diabetes. Patient History Medical History (Updated 09/05/20 @ 07:37 by KENDRICK Payton) Sleep apnea with use of continuous positive airway pressure (CPAP) Family & Social History Family History Father Diabetes mellitus Social History: household members spouse Safety & Behavioral: Feels Safe in Current Yes Environment Been Physically Hurt or No Threatened By a Person Suicidal Ideation Description None Suicide Plan Description No Plan Tobacco & Substance use: Smoking Status Never smoker alcohol intake frequency other Substance Use Type does not use Meds Home Medications and Allergies Home Medications Medication Instructions Recorded Confirmed Type No Known Home Medications 09/04/20 09/04/20 History Allergies Allergy/AdvReac Type Severity Reaction Status Date / Time No Known Drug Allergies Allergy Verified 09/04/20 19:19 Review of Systems Review of Systems ROS: Yes All systems reviewed with the patient and are negative except as otherwise documented Constitutional Constitutional: Reports body ache(s), Reports daytime sleepiness, Reports fatigue, Reports lethargy, Reports malaise and Reports weakness Eyes Eyes: Reports system reviewed and no additional complaints, except as documented and Reports blurry vision ENT Ears, Nose, Mouth, and Throat: Yes system reviewed and no additional complaints, except as documented and Yes dry mouth Cardiovascular Cardiovascular: Reports system reviewed and no additional complaints, except as documented Respiratory Respiratory: Reports system reviewed and no additional complaints, except as documented Gastrointestinal Gastrointestinal: Reports system reviewed and no additional complaints, except as documented Genitourinary Genitourinary: Reports urinary frequency Musculoskeletal Musculoskeletal: Reports myalgias Integumentary/Breasts Skin/Breast: Reports system reviewed and no additional complaints, except as documented Neurologic Neurologic: Reports confusion and Reports weakness Psychiatric Psychiatric: Reports system reviewed and no additional complaints, except as documented, Reports change in appetite and Reports confusion Endocrine Endocrine: Reports system reviewed and no additional complaints, except as documented, Reports fatigue and Reports polydipsia Hematologic/Lymphatic Hematologic/Lymphatic: Reports system reviewed and no additional complaints, except as documented Allergic/Immunologic Allergic/Immunologic: Reports system reviewed and no additional complaints, except as documented Exam Vital Signs (past 8 hours): - 09/04/20 22:05 09/04/20 22:26 09/04/20 23:40 Temperature 98.2 F Pulse Rate 127 H Respiratory Rate 27 H Blood Pressure 141/81 H Pulse Oximetry 100 99 95 09/04/20 23:54 09/05/20 00:10 09/05/20 02:04 Temperature 98.1 F Pulse Rate 114 H 114 H Respiratory Rate 23 Blood Pressure 155/77 H 155/77 H Pulse Oximetry 100 99 09/05/20 03:05 09/05/20 03:12 09/05/20 03:30 Temperature Pulse Rate 78 106 H 106 H Respiratory Rate 17 17 17 Blood Pressure 122/55 L Pulse Oximetry 99 100 Oxygen Delivery Method CPAP Oxygen Flow Rate 0 Narrative Exam Narrative: General: Patient is a large framed , well-developed, well-nourished in no distress at this time. HEENT: Normocephalic, atraumatic, extraocular muscles intact, oral pharynx is clear and mucous membranes are moist. Neck is supple and symmetric, trachea is midline, no adenopathy, no thyroid enlargement, nontender, no masses palpated. Negative for JVD Chest: Normal AP diameter and contour without kyphoscoliosis, no nasal flaring, retractions, or tachypneic labored Lungs: Auscultation of all lung kebede are clear without adventitious sounds, wheezes, rhonchi, or rales. Cardio: S1 & S2 with regular rate and rhythm without murmur, rubs, or gallops, no carotid bruit, no cardiac pulsations present. Abdomen: Soft nontender, negative for organomegaly, or masses. Bowel sounds are present in all 4 quadrants without guarding or rebound, no CVA tenderness. Musculoskeletal: Muscle strength and tone are equal within normal limits, no deformity, Catarino crepitus, effusions, cyanosis, clubbing or edema present. Full range of motion intact radial and pedal pulses are normal. Skin: Warm dry and intact without rashes, ulcerations or petechiae. Neuro: Alert and orientated x3, strength is +5/5 in all extremities, sensation to touch intact, no gross deficits noted of cranial nerves. Psych: Patient has a well-kept appearance, appropriate affect, mental status attitude thought context and judgment are appropriate for age. Objective Labs Result Diagrams: 09/05/20 04:30 09/04/20 22:50 Labs: Laboratory Results - last 24 hr 09/04/20 09/04/20 09/04/20 19:02 19:07 19:07 WBC 7.0 RBC 5.85 Hgb 17.2 Hct 53.7 H MCV 91.8 MCH 29.4 MCHC 32.0 RDW 13.9 Plt Count 230 Neut % (Auto) 73.8 Lymph % (Auto) 20.1 L [place] % (Auto) 5.8 Eos % (Auto) 0.1 L Baso % (Auto) 0.2 Neut # (Auto) 5100 Lymph # (Auto) 1400 [place] # (Auto) 400 Eos # (Auto) 0 Baso # (Auto) 0 PT INR APTT ABG pH ABG pCO2 ABG pO2 ABG HCO3 ABG Total CO2 ABG O2 Saturation ABG Base Excess FiO2 Sodium Potassium Chloride Carbon Dioxide BUN Creatinine Estimated GFR BUN/Creatinine Ratio Glucose Hemoglobin A1c Lactate Calcium Phosphorus Magnesium Total Bilirubin AST ALT Alkaline Phosphatase NT-Pro-B Natriuret Pep Total Protein Albumin Globulin Albumin/Globulin Ratio Amylase Lipase Procalcitonin 0.08 TSH Urine Color Urine Appearance Urine pH Ur Specific [place] Urine Protein Urine Glucose (UA) Urine Ketones Urine Occult Blood Urine Nitrate Urine Bilirubin Urine Urobilinogen Ur Leukocyte Esterase Urine RBC Urine WBC Ur Squamous Epith Cells Ur Transition Epith Cell Ur Renal Epithelial Cell Amorphous Sediment Urine Bacteria Hyaline Casts Granular Casts Ur Culture Indicated? Nasal Screen MRSA (PCR) Salicylates U Opiates 300ng/mL cut Ur Oxycodone Screen Urine Methadone Screen Ur Barbiturates Screen U Tricyclic Antidepress Ur Phencyclidine Scrn Ur Amphetamines Screen U Methamphetamines Scrn Ur MDMA Scrn (Ecstasy) U Benzodiazepines Scrn Urine Cocaine Screen U Marijuana (THC) Screen Ketones SARS-CoV-2 (PCR) Negative Influenza A (RT-PCR) Influenza B (RT-PCR) 09/04/20 09/04/20 09/04/20 19:07 19:07 19:25 WBC RBC Hgb Hct MCV MCH MCHC RDW Plt Count Neut % (Auto) Lymph % (Auto) [place] % (Auto) Eos % (Auto) Baso % (Auto) Neut # (Auto) Lymph # (Auto) [place] # (Auto) Eos # (Auto) Baso # (Auto) PT 10.4 INR 0.9 APTT 29 ABG pH ABG pCO2 ABG pO2 ABG HCO3 ABG Total CO2 ABG O2 Saturation ABG Base Excess FiO2 Sodium 137 Potassium 5.6 H Chloride 101 Carbon Dioxide 7 L* BUN 31 H Creatinine 1.57 H Estimated GFR 50.0 L BUN/Creatinine Ratio 19.7 Glucose 595 H* Hemoglobin A1c Lactate 2.2 H Calcium 9.1 Phosphorus Magnesium Total Bilirubin 0.7 AST 37 ALT 86 H Alkaline Phosphatase 79 NT-Pro-B Natriuret Pep Total Protein 9.2 H Albumin 5.1 H Globulin 4.1 Albumin/Globulin Ratio 1.2 Amylase Lipase 275 Procalcitonin TSH Urine Color Urine Appearance Urine pH Ur Specific [place] Urine Protein Urine Glucose (UA) Urine Ketones Urine Occult Blood Urine Nitrate Urine Bilirubin Urine Urobilinogen Ur Leukocyte Esterase Urine RBC Urine WBC Ur Squamous Epith Cells Ur Transition Epith Cell Ur Renal Epithelial Cell Amorphous Sediment Urine Bacteria Hyaline Casts Granular Casts Ur Culture Indicated? Nasal Screen MRSA (PCR) Salicylates U Opiates 300ng/mL cut Ur Oxycodone Screen Urine Methadone Screen Ur Barbiturates Screen U Tricyclic Antidepress Ur Phencyclidine Scrn Ur Amphetamines Screen U Methamphetamines Scrn Ur MDMA Scrn (Ecstasy) U Benzodiazepines Scrn Urine Cocaine Screen U Marijuana (THC) Screen Ketones SARS-CoV-2 (PCR) Influenza A (RT-PCR) Influenza B (RT-PCR) 09/04/20 09/04/20 09/04/20 19:25 19:41 19:55 WBC RBC Hgb Hct MCV MCH MCHC RDW Plt Count Neut % (Auto) Lymph % (Auto) [place] % (Auto) Eos % (Auto) Baso % (Auto) Neut # (Auto) Lymph # (Auto) [place] # (Auto) Eos # (Auto) Baso # (Auto) PT INR APTT ABG pH 7.20 L* ABG pCO2 24.3 L* ABG pO2 96 ABG HCO3 10 L ABG Total CO2 10 L ABG O2 Saturation 96 ABG Base Excess -18.0 L FiO2 21 Sodium 137 Potassium 5.2 H Chloride 102 Carbon Dioxide 8 L* BUN 31 H Creatinine 1.58 H Estimated GFR 49.6 L BUN/Creatinine Ratio 19.6 Glucose 597 H* Hemoglobin A1c Lactate Calcium 9.1 Phosphorus Magnesium Total Bilirubin 0.6 AST 36 ALT 83 H Alkaline Phosphatase 78 NT-Pro-B Natriuret Pep Total Protein 9.0 H Albumin 5.0 Globulin 4.0 Albumin/Globulin Ratio 1.3 Amylase Lipase Procalcitonin TSH Urine Color Yellow Urine Appearance Clear Urine pH 5.5 Ur Specific [place] 1.020 Urine Protein 2+ H Urine Glucose (UA) 1+ H Urine Ketones 3+ H Urine Occult Blood 3+ H Urine Nitrate Negative Urine Bilirubin Negative Urine Urobilinogen 0.2 Ur Leukocyte Esterase Negative Urine RBC 1-5/hpf Urine WBC 0-1/hpf Ur Squamous Epith Cells 0-1 /hpf Ur Transition Epith Cell 0-1/hpf Ur Renal Epithelial Cell 0-1/hpf Amorphous Sediment 1+ Urine Bacteria None seen Hyaline Casts 1-5/lpf Granular Casts 0-1/lpf Ur Culture Indicated? Cult not indicated Nasal Screen MRSA (PCR) Salicylates U Opiates 300ng/mL cut Ur Oxycodone Screen Urine Methadone Screen Ur Barbiturates Screen U Tricyclic Antidepress Ur Phencyclidine Scrn Ur Amphetamines Screen U Methamphetamines Scrn Ur MDMA Scrn (Ecstasy) U Benzodiazepines Scrn Urine Cocaine Screen U Marijuana (THC) Screen Ketones 10.36 H SARS-CoV-2 (PCR) Influenza A (RT-PCR) Influenza B (RT-PCR) 09/04/20 09/04/20 09/04/20 19:55 21:10 22:15 WBC RBC Hgb Hct MCV MCH MCHC RDW Plt Count Neut % (Auto) Lymph % (Auto) [place] % (Auto) Eos % (Auto) Baso % (Auto) Neut # (Auto) Lymph # (Auto) [place] # (Auto) Eos # (Auto) Baso # (Auto) PT INR APTT ABG pH ABG pCO2 ABG pO2 ABG HCO3 ABG Total CO2 ABG O2 Saturation ABG Base Excess FiO2 Sodium Potassium Chloride Carbon Dioxide BUN Creatinine Estimated GFR BUN/Creatinine Ratio Glucose Hemoglobin A1c Lactate Calcium Phosphorus Magnesium Total Bilirubin AST ALT Alkaline Phosphatase NT-Pro-B Natriuret Pep Total Protein Albumin Globulin Albumin/Globulin Ratio Amylase Lipase Procalcitonin TSH Urine Color Urine Appearance Urine pH Ur Specific [place] Urine Protein Urine Glucose (UA) Urine Ketones Urine Occult Blood Urine Nitrate Urine Bilirubin Urine Urobilinogen Ur Leukocyte Esterase Urine RBC Urine WBC Ur Squamous Epith Cells Ur Transition Epith Cell Ur Renal Epithelial Cell Amorphous Sediment Urine Bacteria Hyaline Casts Granular Casts Ur Culture Indicated? Nasal Screen MRSA (PCR) Negative for mrsa Salicylates U Opiates 300ng/mL cut Negative Ur Oxycodone Screen Negative Urine Methadone Screen Negative Ur Barbiturates Screen Negative U Tricyclic Antidepress Negative Ur Phencyclidine Scrn Negative Ur Amphetamines Screen Negative U Methamphetamines Scrn Negative Ur MDMA Scrn (Ecstasy) Negative U Benzodiazepines Scrn Negative Urine Cocaine Screen Negative U Marijuana (THC) Screen Negative Ketones SARS-CoV-2 (PCR) Influenza A (RT-PCR) Flu a negative Influenza B (RT-PCR) Flu b negative 09/04/20 09/04/20 09/04/20 22:50 22:50 22:50 WBC RBC Hgb Hct MCV MCH MCHC RDW Plt Count Neut % (Auto) Lymph % (Auto) [place] % (Auto) Eos % (Auto) Baso % (Auto) Neut # (Auto) Lymph # (Auto) [place] # (Auto) Eos # (Auto) Baso # (Auto) PT INR APTT ABG pH ABG pCO2 ABG pO2 ABG HCO3 ABG Total CO2 ABG O2 Saturation ABG Base Excess FiO2 Sodium Cancelled Potassium Cancelled Chloride Cancelled Carbon Dioxide Cancelled BUN Creatinine Estimated GFR BUN/Creatinine Ratio Glucose Hemoglobin A1c Lactate 1.7 Calcium Phosphorus 3.9 Magnesium Total Bilirubin AST ALT Alkaline Phosphatase NT-Pro-B Natriuret Pep Total Protein Albumin Globulin Albumin/Globulin Ratio Amylase Lipase Procalcitonin TSH Urine Color Urine Appearance Urine pH Ur Specific [place] Urine Protein Urine Glucose (UA) Urine Ketones Urine Occult Blood Urine Nitrate Urine Bilirubin Urine Urobilinogen Ur Leukocyte Esterase Urine RBC Urine WBC Ur Squamous Epith Cells Ur Transition Epith Cell Ur Renal Epithelial Cell Amorphous Sediment Urine Bacteria Hyaline Casts Granular Casts Ur Culture Indicated? Nasal Screen MRSA (PCR) Salicylates U Opiates 300ng/mL cut Ur Oxycodone Screen Urine Methadone Screen Ur Barbiturates Screen U Tricyclic Antidepress Ur Phencyclidine Scrn Ur Amphetamines Screen U Methamphetamines Scrn Ur MDMA Scrn (Ecstasy) U Benzodiazepines Scrn Urine Cocaine Screen U Marijuana (THC) Screen Ketones SARS-CoV-2 (PCR) Influenza A (RT-PCR) Influenza B (RT-PCR) 09/04/20 09/04/20 09/04/20 22:50 22:50 22:50 WBC RBC Hgb Hct MCV MCH MCHC RDW Plt Count Neut % (Auto) Lymph % (Auto) [place] % (Auto) Eos % (Auto) Baso % (Auto) Neut # (Auto) Lymph # (Auto) [place] # (Auto) Eos # (Auto) Baso # (Auto) PT 11.0 INR 1.0 APTT 25 L ABG pH ABG pCO2 ABG pO2 ABG HCO3 ABG Total CO2 ABG O2 Saturation ABG Base Excess FiO2 Sodium 142 Potassium 5.0 Chloride 111 H Carbon Dioxide 7 L* BUN 27 H Creatinine 1.38 H Estimated GFR 58.0 L BUN/Creatinine Ratio 19.6 Glucose 451 H D Hemoglobin A1c Lactate Calcium 8.2 L Phosphorus 4.0 Magnesium 2.3 Total Bilirubin AST ALT Alkaline Phosphatase NT-Pro-B Natriuret Pep < 11 Total Protein Albumin Globulin Albumin/Globulin Ratio Amylase 294 H Lipase Procalcitonin TSH Urine Color Urine Appearance Urine pH Ur Specific [place] Urine Protein Urine Glucose (UA) Urine Ketones Urine Occult Blood Urine Nitrate Urine Bilirubin Urine Urobilinogen Ur Leukocyte Esterase Urine RBC Urine WBC Ur Squamous Epith Cells Ur Transition Epith Cell Ur Renal Epithelial Cell Amorphous Sediment Urine Bacteria Hyaline Casts Granular Casts Ur Culture Indicated? Nasal Screen MRSA (PCR) Salicylates < 1.0 U Opiates 300ng/mL cut Ur Oxycodone Screen Urine Methadone Screen Ur Barbiturates Screen U Tricyclic Antidepress Ur Phencyclidine Scrn Ur Amphetamines Screen U Methamphetamines Scrn Ur MDMA Scrn (Ecstasy) U Benzodiazepines Scrn Urine Cocaine Screen U Marijuana (THC) Screen Ketones SARS-CoV-2 (PCR) Influenza A (RT-PCR) Influenza B (RT-PCR) 09/04/20 09/04/20 09/05/20 22:50 22:50 00:18 WBC RBC Hgb Hct MCV MCH MCHC RDW Plt Count Neut % (Auto) Lymph % (Auto) [place] % (Auto) Eos % (Auto) Baso % (Auto) Neut # (Auto) Lymph # (Auto) [place] # (Auto) Eos # (Auto) Baso # (Auto) PT INR APTT ABG pH 7.16 L* ABG pCO2 25.6 L ABG pO2 127 H ABG HCO3 9 L ABG Total CO2 10 L ABG O2 Saturation 98 ABG Base Excess -20.0 L FiO2 28 Sodium Potassium Chloride Carbon Dioxide BUN Creatinine Estimated GFR BUN/Creatinine Ratio Glucose Hemoglobin A1c 12.0 H Lactate Calcium Phosphorus Magnesium Total Bilirubin AST ALT Alkaline Phosphatase NT-Pro-B Natriuret Pep Total Protein Albumin Globulin Albumin/Globulin Ratio Amylase Lipase Procalcitonin TSH 0.57 Urine Color Urine Appearance Urine pH Ur Specific [place] Urine Protein Urine Glucose (UA) Urine Ketones Urine Occult Blood Urine Nitrate Urine Bilirubin Urine Urobilinogen Ur Leukocyte Esterase Urine RBC Urine WBC Ur Squamous Epith Cells Ur Transition Epith Cell Ur Renal Epithelial Cell Amorphous Sediment Urine Bacteria Hyaline Casts Granular Casts Ur Culture Indicated? Nasal Screen MRSA (PCR) Salicylates U Opiates 300ng/mL cut Ur Oxycodone Screen Urine Methadone Screen Ur Barbiturates Screen U Tricyclic Antidepress Ur Phencyclidine Scrn Ur Amphetamines Screen U Methamphetamines Scrn Ur MDMA Scrn (Ecstasy) U Benzodiazepines Scrn Urine Cocaine Screen U Marijuana (THC) Screen Ketones SARS-CoV-2 (PCR) Influenza A (RT-PCR) Influenza B (RT-PCR) 09/05/20 09/05/20 04:30 04:30 WBC 6.2 RBC 5.33 Hgb 15.9 Hct 49.5 MCV 92.7 MCH 29.8 MCHC 32.1 RDW 13.7 Plt Count 167 Neut % (Auto) 69.1 Lymph % (Auto) 24.7 L [place] % (Auto) 5.9 Eos % (Auto) 0.1 L Baso % (Auto) 0.2 Neut # (Auto) 4300 Lymph # (Auto) 1500 [place] # (Auto) 400 Eos # (Auto) 0 Baso # (Auto) 0 PT INR APTT ABG pH ABG pCO2 ABG pO2 ABG HCO3 ABG Total CO2 ABG O2 Saturation ABG Base Excess FiO2 Sodium Cancelled Potassium Cancelled Chloride Cancelled Carbon Dioxide Cancelled BUN Cancelled Creatinine Cancelled Estimated GFR Cancelled BUN/Creatinine Ratio Cancelled Glucose Cancelled Hemoglobin A1c Lactate Calcium Cancelled Phosphorus Magnesium Total Bilirubin AST ALT Alkaline Phosphatase NT-Pro-B Natriuret Pep Total Protein Albumin Globulin Albumin/Globulin Ratio Amylase Lipase Procalcitonin TSH Urine Color Urine Appearance Urine pH Ur Specific [place] Urine Protein Urine Glucose (UA) Urine Ketones Urine Occult Blood Urine Nitrate Urine Bilirubin Urine Urobilinogen Ur Leukocyte Esterase Urine RBC Urine WBC Ur Squamous Epith Cells Ur Transition Epith Cell Ur Renal Epithelial Cell Amorphous Sediment Urine Bacteria Hyaline Casts Granular Casts Ur Culture Indicated? Nasal Screen MRSA (PCR) Salicylates U Opiates 300ng/mL cut Ur Oxycodone Screen Urine Methadone Screen Ur Barbiturates Screen U Tricyclic Antidepress Ur Phencyclidine Scrn Ur Amphetamines Screen U Methamphetamines Scrn Ur MDMA Scrn (Ecstasy) U Benzodiazepines Scrn Urine Cocaine Screen U Marijuana (THC) Screen Ketones SARS-CoV-2 (PCR) Influenza A (RT-PCR) Influenza B (RT-PCR) Assessment & Plan Assessment & Plan narrative: This patient requires acute care inpatient hospital management for new onset diabetes, DKA with anion gap of 26. The patient is at much higher risk for medical and surgical complications because of lack of any healthcare/PCP prior to this admission. These factors increase the difficulty and complexity of medical interventions and increases the chances of poor outcomes such as morbidity and mortality, as well as complications such as cardiac arrhythmias and hyperosmolality. 1. Acute DKA, new onset diabetes, present on admission vital upon presentation temp 98?, BP 162/95, HR 125, RR 16, SaO2 98%, the ABGs: PH 7.2, pCO2 24.3, HC03 10, CO2 10, excess -18, anion gap of 26 lactate 2.2, GFR 49.6, BUN 31, chloride 102, bicarb 8, creatinine 1.58, potassium 5.2, glucose 597, ALT 83, procalcitonin 0.08. A1C 12. CT KUB showed severe hepatic stenosis. -patient to be monitored on tele medicine, vital signs q.4 hours, blood sugar checks Q 1 hour, BNP q.4 hours, intake and output monitored Q shift, weight measure daily, diet: low carbohydrate, -CXR:No focal infiltrate, pleural effusion or pneumothorax. CT KUB:No renal stone or hydronephrosis. Normal appearing bilateral ureters and urinary bladder. Severe hepatic steatosis. No discrete hepatic lesion. Normal appendix. No bowel obstruction. No abnormal bowel wall thickening. No free fluid or free air. EKG: in ER Sinus tachycardia, rate of 125, MI 148, QRS 86 and QTC of 450. Nonspecific change -IV fluid initial normal saline 150 cc/hour-patient's initial blood sugar was 595 in the ER, was given 5 units R insulin SQ, 380 blood sugar upon admission to the floor when the patient was subsequently given an additional 35 units in total patient's blood sugar remained at 326 at 0230. Insulin drip was initiated at 6 units/hour with half-normal saline continue to titrate up to 15 units an hour. At 5:36 a.m. patient's blood sugar was 347 on 15 units/hour when neither lab normal respiratory were able to take patient's blood for Q 4 hour monitoring for the acidosis, PICC line was ordered. At approximately 6:15 a.m. patient's blood sugar was 253 on 15 units/hour blood pressure dropped to 76/44 with a map of 56, ordered a norepinephrine 5 mcg/min drip to titrate to a map>[address] PICC line had not been available, so requested Dr. ESTRADA in the ER to place a central line, she in turn contacted surgery Dr. Pierre who was requested to come in and place central line at approximately 7:00 a.m. 7:30 a.m. vitals temp 98.1?, BP 117/58, pulse 98, respirations 17, O2 saturation 99%. -once blood sugar is below 250 change IV fluids to D5 and half at 150 cc, keep potassium above 3.3, once anion gap is less than 18 started on regular diet. -monitor blood sugar checks q.1 hour until blood sugar below 150, BMP q.4 hours checking for closing of the anion gap and potassium also monitor phosphorus and bicarb and assess for acute pancreatitis, cardiac arrhythmias and hyper osmolality -medications and IV fluids provided in the emergency room: Patient had 3000 cc normal saline bolus per DKA protocol and 5 units R insulin subQ -labs ordered in a.m. ketones, lactate, phosphorus, Mag, repeat ABG, TSH, A1c, GAD65, C-peptide, amylase, lipase, osmolality, salicylate -capnography ordered -consults ordered physical therapy, occupational therapy, speech therapy, dietary, respiratory therapy. -prevention vaccine- recommend FLU Code status:Full Surrogate/plan of care: Sandra [place] Spouse COVID PCR:Negative VTE prophylaxis: SCDs and enoxaparin 40 mg Scores GCS [place] coma scale eye opening: To sound [place] coma scale verbal response: Orientated [place] coma scale motor response: Obey commands [place] coma scale total score: 14 SOFA PaO2/FIO2: >=400 mmHg Platelets: >= 150 Bilirubin: < 1.2 mg/dL Hypotension: MAP >= 70 mmHg [place] Coma Scale: 13-14 Renal: Creatinine 1.2-1.9 mg/dL SOFA Score: 2
[2020-09-05] MEDS: NOREPINEPHRINE 4 MG in DEXTROSE 5% IN WATER 250 ML 30.48 ML IV (06:44)
[2020-09-05] MEDS: INSULIN DRIP PREMIX 100 UNIT/100 ML PLAST..BAG 15 UNIT IV (07:21)
--- NOTE | 2020-09-05 07:42 | DI.RAD.S_ITS ---
PROCEDURE: XR CHEST 1V INDICATIONS: central line placement confirmation TECHNIQUE: One view of the chest was acquired. COMPARISON: [facility], CR, CHEST 2VW, 01/28/2012, 11:34. [facility], CR, XR CHEST 1V, 09/04/2020, 19:21. FINDINGS: Surgical changes and devices: There is a right-sided central line seen, with the tip overlying the right atrium, approximately 2 cm below the cavoatrial junction. Lungs and pleura: Lungs are clear. No pleural effusions or pneumothorax, although the inferior most right costophrenic angle is not included within the field of view of this study. Mediastinum: Mediastinal contours appear normal. Heart size is normal. Bones and chest wall: No suspicious bony lesions. Overlying soft tissues appear unremarkable. IMPRESSION: The tip of the right-sided central line overlies the right atrium. Dictated by: Topher Rae M.D. on 09/05/2020 at 7:23 Approved by: Topher Rae M.D. on 09/05/2020 at 7:25
--- NOTE | 2020-09-05 07:52 | P.OP_ITS ---
Operative Date/Time/Diagnoses Date of procedure: 09/05/20 Time of procedure: 07:52 Pre-op diagnosis: DKA, hypotension, needs stable IV access Post-op diagnosis: same Procedure & Clinicians Procedure: Central venous catheter placement, right IJ Same procedure as scheduled: Yes Indications: DKA, hypotension, needs stable IV access for lab draws and pressors Surgeon: Liliana Munoz Click Yes if Unassisted: Yes Anesthesia Type: General Operative Notes Findings: Good US of right IJ, good blood return Specimen(s): none sent Prosthetic devices, grafts, tissues, transplants, or devices: Triple lumen central venous catheter Estimated Blood Loss (mL): 25 Procedure in detail: Informed consent was obtained from the patient's . The patient was then placed in Trendelenberg and his right IJ was viewed with US. He was positioned appropriately for the procedure with head turned to the left and right neck and chest exposed. The right neck and chest were prepped and draped in sterile fashion. Local anesthetic was infiltrated under the skin, and an 18 guage needle was used to access his right IJ under US guidance. Dark blood return was seen in the syringe, and the syringe was removed from the needle. The Seldinger wire was placed down the center of the needle and went in smoothly, once in adequate position, the needle was removed. A daquan was made in the skin over the wire, and a dilator was used to dilate the skin and subcutaneous tissues. The dilator was removed, and then a triple lumen CVC was placed over the wire and the wire was removed. The blue and white ports flushed and susanne back blood easily. The brown port flushed easily but did not draw back easily. The line was sutured in place and a sterile dressing was applied. The patient remained stable throughtout the procedure. He tolerated the procedure well. Needle, sponge and instrument counts were correct x 2 at the end of the procedure. All sharps were disposed of. Follow up CXR showed CVC tip in right atrium. Neck was reprepped and draped, and the central line was drawn back 4cm and re- secured. At this point, the brown port susanne back and flushed smoothly. Follow up CXR pending. Complications: none Post-operative Condition: stable Disposition: ICU
[2020-09-05] MEDS: SODIUM CHLORIDE 0.9% 1,000 ML 1000 ML IV (08:08)
[2020-09-05 08:38] LABS: Alanine Aminotransferase 60 IU/L (<50); Albumin 4.1 g/dL (3.5-5.0); Albumin Globulin Ratio 1.2 (1.0-2.8); Alkaline Phosphatase 57 U/L (38-126); Aspartate Aminotransferase 37 IU/L (17-59); Bilirubin Total 0.5 mg/dL (0.2-1.3); Blood Urea Nitrogen 37 mg/dL (9-20); Calcium 7.9 mg/dL (8.4-10.2); Carbon Dioxide 10 mmol/L (22-32); Chloride 115 mmol/L (98-107); Cholesterol 258 mg/dL (140-199); Estimated Glomerular Filt Rate 20.8 mL/min (>60); Globulin 3.4 g/dL (1.7-4.1); Glucose 195 mg/dL (70-100); HDL Cholesterol 41 mg/dL (40-60); HEMOLYSIS 32 (0-50); LDL Cholesterol Calculated 158 mg/dL (<100); Lactate (Lactic Acid) 0.8 mmol/L (0.7-2.1); Potassium 4.4 mmol/L (3.4-5.1); Sodium 141 mmol/L (137-145); Total Protein 7.5 g/dL (6.3-8.2); Triglycerides 293 mg/dL (35-150)
[2020-09-05 08:41] LABS: Ketones (Beta-Hydroxybutyrate) 6.75 mmol/L (<0.27)
--- NOTE | 2020-09-05 08:45 | DI.RAD.S_ITS ---
PROCEDURE: XR CHEST 1V INDICATIONS: confirm central line placement TECHNIQUE: One view of the chest was acquired. COMPARISON: [facility], CR, CHEST 2VW, 01/28/2012, 11:34. Formerly [facility], CR, XR CHEST 1V, 09/04/2020, 19:21. [facility], CR, XR CHEST 1V, 09/05/2020, 7:58. FINDINGS: Surgical changes and devices: The position of the tip of the right-sided central line is been adjusted, and is now seen overlying the inferior aspect of the superior vena cava, near the cavoatrial junction. Lungs and pleura: Lungs are clear. No pleural effusions or pneumothorax. Mediastinum: Mediastinal contours appear normal. Heart size is normal. Bones and chest wall: No suspicious bony lesions. Overlying soft tissues appear unremarkable. IMPRESSION: The tip of the right-sided central line is now seen overlying the inferior aspect of the superior vena cava. Dictated by: Topher Rae M.D. on 09/05/2020 at 8:05 Approved by: Topher Rae M.D. on 09/05/2020 at 8:06
[2020-09-05 08:59] LABS: Hemoglobin A1C% w Est Avg Glu 12.3 % (4.0-6.0)
[2020-09-05 09:08] LABS: Cortisol AM (Before 10AM) 28.3 ug/dL (4.46-22.7)
[2020-09-05] MEDS: DEXTROSE 5%-0.45% NS 1,000 ML 184 ML IV ×2 (10:45→17:54)
--- NOTE | 2020-09-05 10:47 | PC.NURSE ---
Addendum entered by Cheyanne Lopez R.N. 09/05/20 14:46: Edit -Anion gap 14 Addendum entered by Cheyanne Lopez R.N. 09/05/20 13:57: Pt reports feeling significantly better, though remains fatigued. Able to ambulate to BR unmeasured void, and BM. IVF changed to LR and rate increased to 200 mls/hr, d/t REHAN. Per Dr Hannah , renal u/s after Pt is stabilized. CPAP at bedside, drops to mid 80's at sleep. Levophed has been off since 12 noon. Tolerating well. VSS. Anion Gap 19 @ 1300. Original Note: Am shift At start of shift, Pt with Dr Munoz at bedside placing central line. Pt in reverse trundelenburg, hypotensive and Levophed infusing at 20mcg/min. Pt able to rouse with loud voice and touch, can follow commands. Able to state name and . at bedside. insulin infusing per protocol, IV. CXR done to confirm placement, Dr Munoz back at bedside to pull IJ back and repeat CXR done. Pt denies pain, CBG continue hourly, and with DKA protocol. Updated on POC.
[2020-09-05] MEDS: DEXTROSE 10 % IN WATER 1,000 ML 123 ML IV (11:30)
[2020-09-05] MEDS: ONDANSETRON 4 MG/2 ML INJ IV (12:45)
--- NOTE | 2020-09-05 12:58 | P.PN_ITS ---
Subjective Subjective Date Patient Seen: 09/05/20 Interval history: Patient is lethargic but arousable. He denies any shortness of breath or abdominal pain. He reports excessive thirst, polydipsia and polyuria. He denies any shortness of breath. He is lethargic but arousable. He has no pain. The patient was hypotensive earlier today. He was initially on Levophed, now is on IV hydration in the Levophed has been weaned off. Patient was also noted to have acute renal failure on admission which progressed. Awaiting serial BMPs. Blood pressure improved with IV hydration. Exam Vital Signs (past 8 hours): - 09/05/20 05:00 09/05/20 05:15 09/05/20 05:30 Temperature Pulse Rate 101 H 105 H 106 H Respiratory Rate 18 18 17 Blood Pressure 93/54 L Pulse Oximetry 99 100 99 09/05/20 05:45 09/05/20 06:00 09/05/20 06:04 Temperature Pulse Rate 104 H 104 H 103 H Respiratory Rate 17 17 19 Blood Pressure 98/53 L 80/43 L Pulse Oximetry 99 98 99 09/05/20 06:07 09/05/20 06:08 09/05/20 06:11 Temperature Pulse Rate 105 H 107 H 104 H Respiratory Rate 19 18 18 Blood Pressure 72/41 L 77/40 L 75/40 L Pulse Oximetry 99 99 100 09/05/20 06:14 09/05/20 06:15 09/05/20 06:21 Temperature Pulse Rate 106 H 107 H 108 H Respiratory Rate 18 17 Blood Pressure 73/44 L 76/44 L 76/44 L Pulse Oximetry 99 100 09/05/20 06:30 09/05/20 06:43 09/05/20 06:44 Temperature Pulse Rate 106 H 108 H 108 H Respiratory Rate 20 21 21 Blood Pressure 73/36 L 61/39 L Pulse Oximetry 98 97 96 09/05/20 06:45 09/05/20 06:48 09/05/20 06:59 Temperature Pulse Rate 104 H 97 H 97 H Respiratory Rate 19 19 20 Blood Pressure 66/35 L 89/49 L 81/41 L Pulse Oximetry 97 98 97 09/05/20 07:00 09/05/20 07:04 09/05/20 07:15 Temperature Pulse Rate 97 H 98 H 98 H Respiratory Rate 20 20 21 Blood Pressure 83/44 L 83/46 L 116/54 L Pulse Oximetry 98 99 96 09/05/20 07:30 09/05/20 08:00 09/05/20 09:25 Temperature 97.2 F L Pulse Rate 98 H 102 H 100 H Respiratory Rate 17 15 20 Blood Pressure 117/58 L 115/56 L Pulse Oximetry 99 99 100 09/05/20 12:00 Temperature 98.2 F Pulse Rate 101 H Respiratory Rate 17 Blood Pressure 129/59 L Pulse Oximetry 100 Oxygen Delivery Method Nasal Cannula Oxygen Flow Rate 0 Narrative Exam Narrative: Ill-appearing male lying in bed HEENT: Normocephalic atraumatic, extraocular muscles are intact, oropharynx reveals dry mucous members Lungs: Decreased breath sounds but clear Cardiac exam: Tachycardic, regular rate and rhythm, normal S1-S2 Abdomen: Soft nontender nondistended Extremities: No edema Objective Labs Result Diagrams: 09/05/20 04:30 09/05/20 08:00 Labs: Laboratory Results - last 24 hr 09/04/20 09/04/20 09/04/20 19:02 19:07 19:07 WBC 7.0 RBC 5.85 Hgb 17.2 Hct 53.7 H MCV 91.8 MCH 29.4 MCHC 32.0 RDW 13.9 Plt Count 230 Neut % (Auto) 73.8 Lymph % (Auto) 20.1 L [place] % (Auto) 5.8 Eos % (Auto) 0.1 L Baso % (Auto) 0.2 Neut # (Auto) 5100 Lymph # (Auto) 1400 [place] # (Auto) 400 Eos # (Auto) 0 Baso # (Auto) 0 PT INR APTT ABG pH ABG pCO2 ABG pO2 ABG HCO3 ABG Total CO2 ABG O2 Saturation ABG Base Excess FiO2 Sodium Potassium Chloride Carbon Dioxide BUN Creatinine Estimated GFR BUN/Creatinine Ratio Glucose Hemoglobin A1c Lactate Calcium Phosphorus Magnesium Total Bilirubin AST ALT Alkaline Phosphatase NT-Pro-B Natriuret Pep Total Protein Albumin Globulin Albumin/Globulin Ratio Triglycerides Cholesterol LDL Cholesterol, Calc HDL Cholesterol Amylase Lipase Procalcitonin 0.08 TSH Cortisol AM Sample Urine Color Urine Appearance Urine pH Ur Specific [place] Urine Protein Urine Glucose (UA) Urine Ketones Urine Occult Blood Urine Nitrate Urine Bilirubin Urine Urobilinogen Ur Leukocyte Esterase Urine RBC Urine WBC Ur Squamous Epith Cells Ur Transition Epith Cell Ur Renal Epithelial Cell Amorphous Sediment Urine Bacteria Hyaline Casts Granular Casts Ur Culture Indicated? Nasal Screen MRSA (PCR) Salicylates U Opiates 300ng/mL cut Ur Oxycodone Screen Urine Methadone Screen Ur Barbiturates Screen U Tricyclic Antidepress Ur Phencyclidine Scrn Ur Amphetamines Screen U Methamphetamines Scrn Ur MDMA Scrn (Ecstasy) U Benzodiazepines Scrn Urine Cocaine Screen U Marijuana (THC) Screen Ketones SARS-CoV-2 (PCR) Negative Influenza A (RT-PCR) Influenza B (RT-PCR) 09/04/20 09/04/20 09/04/20 19:07 19:07 19:25 WBC RBC Hgb Hct MCV MCH MCHC RDW Plt Count Neut % (Auto) Lymph % (Auto) [place] % (Auto) Eos % (Auto) Baso % (Auto) Neut # (Auto) Lymph # (Auto) [place] # (Auto) Eos # (Auto) Baso # (Auto) PT 10.4 INR 0.9 APTT 29 ABG pH ABG pCO2 ABG pO2 ABG HCO3 ABG Total CO2 ABG O2 Saturation ABG Base Excess FiO2 Sodium 137 Potassium 5.6 H Chloride 101 Carbon Dioxide 7 L* BUN 31 H Creatinine 1.57 H Estimated GFR 50.0 L BUN/Creatinine Ratio 19.7 Glucose 595 H* Hemoglobin A1c Lactate 2.2 H Calcium 9.1 Phosphorus Magnesium Total Bilirubin 0.7 AST 37 ALT 86 H Alkaline Phosphatase 79 NT-Pro-B Natriuret Pep Total Protein 9.2 H Albumin 5.1 H Globulin 4.1 Albumin/Globulin Ratio 1.2 Triglycerides Cholesterol LDL Cholesterol, Calc HDL Cholesterol Amylase Lipase 275 Procalcitonin TSH Cortisol AM Sample Urine Color Urine Appearance Urine pH Ur Specific [place] Urine Protein Urine Glucose (UA) Urine Ketones Urine Occult Blood Urine Nitrate Urine Bilirubin Urine Urobilinogen Ur Leukocyte Esterase Urine RBC Urine WBC Ur Squamous Epith Cells Ur Transition Epith Cell Ur Renal Epithelial Cell Amorphous Sediment Urine Bacteria Hyaline Casts Granular Casts Ur Culture Indicated? Nasal Screen MRSA (PCR) Salicylates U Opiates 300ng/mL cut Ur Oxycodone Screen Urine Methadone Screen Ur Barbiturates Screen U Tricyclic Antidepress Ur Phencyclidine Scrn Ur Amphetamines Screen U Methamphetamines Scrn Ur MDMA Scrn (Ecstasy) U Benzodiazepines Scrn Urine Cocaine Screen U Marijuana (THC) Screen Ketones SARS-CoV-2 (PCR) Influenza A (RT-PCR) Influenza B (RT-PCR) 09/04/20 09/04/20 09/04/20 19:25 19:41 19:55 WBC RBC Hgb Hct MCV MCH MCHC RDW Plt Count Neut % (Auto) Lymph % (Auto) [place] % (Auto) Eos % (Auto) Baso % (Auto) Neut # (Auto) Lymph # (Auto) [place] # (Auto) Eos # (Auto) Baso # (Auto) PT INR APTT ABG pH 7.20 L* ABG pCO2 24.3 L* ABG pO2 96 ABG HCO3 10 L ABG Total CO2 10 L ABG O2 Saturation 96 ABG Base Excess -18.0 L FiO2 21 Sodium 137 Potassium 5.2 H Chloride 102 Carbon Dioxide 8 L* BUN 31 H Creatinine 1.58 H Estimated GFR 49.6 L BUN/Creatinine Ratio 19.6 Glucose 597 H* Hemoglobin A1c Lactate Calcium 9.1 Phosphorus Magnesium Total Bilirubin 0.6 AST 36 ALT 83 H Alkaline Phosphatase 78 NT-Pro-B Natriuret Pep Total Protein 9.0 H Albumin 5.0 Globulin 4.0 Albumin/Globulin Ratio 1.3 Triglycerides Cholesterol LDL Cholesterol, Calc HDL Cholesterol Amylase Lipase Procalcitonin TSH Cortisol AM Sample Urine Color Yellow Urine Appearance Clear Urine pH 5.5 Ur Specific [place] 1.020 Urine Protein 2+ H Urine Glucose (UA) 1+ H Urine Ketones 3+ H Urine Occult Blood 3+ H Urine Nitrate Negative Urine Bilirubin Negative Urine Urobilinogen 0.2 Ur Leukocyte Esterase Negative Urine RBC 1-5/hpf Urine WBC 0-1/hpf Ur Squamous Epith Cells 0-1 /hpf Ur Transition Epith Cell 0-1/hpf Ur Renal Epithelial Cell 0-1/hpf Amorphous Sediment 1+ Urine Bacteria None seen Hyaline Casts 1-5/lpf Granular Casts 0-1/lpf Ur Culture Indicated? Cult not indicated Nasal Screen MRSA (PCR) Salicylates U Opiates 300ng/mL cut Ur Oxycodone Screen Urine Methadone Screen Ur Barbiturates Screen U Tricyclic Antidepress Ur Phencyclidine Scrn Ur Amphetamines Screen U Methamphetamines Scrn Ur MDMA Scrn (Ecstasy) U Benzodiazepines Scrn Urine Cocaine Screen U Marijuana (THC) Screen Ketones 10.36 H SARS-CoV-2 (PCR) Influenza A (RT-PCR) Influenza B (RT-PCR) 09/04/20 09/04/20 09/04/20 19:55 21:10 22:15 WBC RBC Hgb Hct MCV MCH MCHC RDW Plt Count Neut % (Auto) Lymph % (Auto) [place] % (Auto) Eos % (Auto) Baso % (Auto) Neut # (Auto) Lymph # (Auto) [place] # (Auto) Eos # (Auto) Baso # (Auto) PT INR APTT ABG pH ABG pCO2 ABG pO2 ABG HCO3 ABG Total CO2 ABG O2 Saturation ABG Base Excess FiO2 Sodium Potassium Chloride Carbon Dioxide BUN Creatinine Estimated GFR BUN/Creatinine Ratio Glucose Hemoglobin A1c Lactate Calcium Phosphorus Magnesium Total Bilirubin AST ALT Alkaline Phosphatase NT-Pro-B Natriuret Pep Total Protein Albumin Globulin Albumin/Globulin Ratio Triglycerides Cholesterol LDL Cholesterol, Calc HDL Cholesterol Amylase Lipase Procalcitonin TSH Cortisol AM Sample Urine Color Urine Appearance Urine pH Ur Specific [place] Urine Protein Urine Glucose (UA) Urine Ketones Urine Occult Blood Urine Nitrate Urine Bilirubin Urine Urobilinogen Ur Leukocyte Esterase Urine RBC Urine WBC Ur Squamous Epith Cells Ur Transition Epith Cell Ur Renal Epithelial Cell Amorphous Sediment Urine Bacteria Hyaline Casts Granular Casts Ur Culture Indicated? Nasal Screen MRSA (PCR) Negative for mrsa Salicylates U Opiates 300ng/mL cut Negative Ur Oxycodone Screen Negative Urine Methadone Screen Negative Ur Barbiturates Screen Negative U Tricyclic Antidepress Negative Ur Phencyclidine Scrn Negative Ur Amphetamines Screen Negative U Methamphetamines Scrn Negative Ur MDMA Scrn (Ecstasy) Negative U Benzodiazepines Scrn Negative Urine Cocaine Screen Negative U Marijuana (THC) Screen Negative Ketones SARS-CoV-2 (PCR) Influenza A (RT-PCR) Flu a negative Influenza B (RT-PCR) Flu b negative 09/04/20 09/04/20 09/04/20 22:50 22:50 22:50 WBC RBC Hgb Hct MCV MCH MCHC RDW Plt Count Neut % (Auto) Lymph % (Auto) [place] % (Auto) Eos % (Auto) Baso % (Auto) Neut # (Auto) Lymph # (Auto) [place] # (Auto) Eos # (Auto) Baso # (Auto) PT INR APTT ABG pH ABG pCO2 ABG pO2 ABG HCO3 ABG Total CO2 ABG O2 Saturation ABG Base Excess FiO2 Sodium Cancelled Potassium Cancelled Chloride Cancelled Carbon Dioxide Cancelled BUN Creatinine Estimated GFR BUN/Creatinine Ratio Glucose Hemoglobin A1c Lactate 1.7 Calcium Phosphorus 3.9 Magnesium Total Bilirubin AST ALT Alkaline Phosphatase NT-Pro-B Natriuret Pep Total Protein Albumin Globulin Albumin/Globulin Ratio Triglycerides Cholesterol LDL Cholesterol, Calc HDL Cholesterol Amylase Lipase Procalcitonin TSH Cortisol AM Sample Urine Color Urine Appearance Urine pH Ur Specific [place] Urine Protein Urine Glucose (UA) Urine Ketones Urine Occult Blood Urine Nitrate Urine Bilirubin Urine Urobilinogen Ur Leukocyte Esterase Urine RBC Urine WBC Ur Squamous Epith Cells Ur Transition Epith Cell Ur Renal Epithelial Cell Amorphous Sediment Urine Bacteria Hyaline Casts Granular Casts Ur Culture Indicated? Nasal Screen MRSA (PCR) Salicylates U Opiates 300ng/mL cut Ur Oxycodone Screen Urine Methadone Screen Ur Barbiturates Screen U Tricyclic Antidepress Ur Phencyclidine Scrn Ur Amphetamines Screen U Methamphetamines Scrn Ur MDMA Scrn (Ecstasy) U Benzodiazepines Scrn Urine Cocaine Screen U Marijuana (THC) Screen Ketones SARS-CoV-2 (PCR) Influenza A (RT-PCR) Influenza B (RT-PCR) 09/04/20 09/04/20 09/04/20 22:50 22:50 22:50 WBC RBC Hgb Hct MCV MCH MCHC RDW Plt Count Neut % (Auto) Lymph % (Auto) [place] % (Auto) Eos % (Auto) Baso % (Auto) Neut # (Auto) Lymph # (Auto) [place] # (Auto) Eos # (Auto) Baso # (Auto) PT 11.0 INR 1.0 APTT 25 L ABG pH ABG pCO2 ABG pO2 ABG HCO3 ABG Total CO2 ABG O2 Saturation ABG Base Excess FiO2 Sodium 142 Potassium 5.0 Chloride 111 H Carbon Dioxide 7 L* BUN 27 H Creatinine 1.38 H Estimated GFR 58.0 L BUN/Creatinine Ratio 19.6 Glucose 451 H D Hemoglobin A1c Lactate Calcium 8.2 L Phosphorus 4.0 Magnesium 2.3 Total Bilirubin AST ALT Alkaline Phosphatase NT-Pro-B Natriuret Pep < 11 Total Protein Albumin Globulin Albumin/Globulin Ratio Triglycerides Cholesterol LDL Cholesterol, Calc HDL Cholesterol Amylase 294 H Lipase Procalcitonin TSH Cortisol AM Sample Urine Color Urine Appearance Urine pH Ur Specific [place] Urine Protein Urine Glucose (UA) Urine Ketones Urine Occult Blood Urine Nitrate Urine Bilirubin Urine Urobilinogen Ur Leukocyte Esterase Urine RBC Urine WBC Ur Squamous Epith Cells Ur Transition Epith Cell Ur Renal Epithelial Cell Amorphous Sediment Urine Bacteria Hyaline Casts Granular Casts Ur Culture Indicated? Nasal Screen MRSA (PCR) Salicylates < 1.0 U Opiates 300ng/mL cut Ur Oxycodone Screen Urine Methadone Screen Ur Barbiturates Screen U Tricyclic Antidepress Ur Phencyclidine Scrn Ur Amphetamines Screen U Methamphetamines Scrn Ur MDMA Scrn (Ecstasy) U Benzodiazepines Scrn Urine Cocaine Screen U Marijuana (THC) Screen Ketones SARS-CoV-2 (PCR) Influenza A (RT-PCR) Influenza B (RT-PCR) 09/04/20 09/04/20 09/05/20 22:50 22:50 00:18 WBC RBC Hgb Hct MCV MCH MCHC RDW Plt Count Neut % (Auto) Lymph % (Auto) [place] % (Auto) Eos % (Auto) Baso % (Auto) Neut # (Auto) Lymph # (Auto) [place] # (Auto) Eos # (Auto) Baso # (Auto) PT INR APTT ABG pH 7.16 L* ABG pCO2 25.6 L ABG pO2 127 H ABG HCO3 9 L ABG Total CO2 10 L ABG O2 Saturation 98 ABG Base Excess -20.0 L FiO2 28 Sodium Potassium Chloride Carbon Dioxide BUN Creatinine Estimated GFR BUN/Creatinine Ratio Glucose Hemoglobin A1c 12.0 H Lactate Calcium Phosphorus Magnesium Total Bilirubin AST ALT Alkaline Phosphatase NT-Pro-B Natriuret Pep Total Protein Albumin Globulin Albumin/Globulin Ratio Triglycerides Cholesterol LDL Cholesterol, Calc HDL Cholesterol Amylase Lipase Procalcitonin TSH 0.57 Cortisol AM Sample Urine Color Urine Appearance Urine pH Ur Specific [place] Urine Protein Urine Glucose (UA) Urine Ketones Urine Occult Blood Urine Nitrate Urine Bilirubin Urine Urobilinogen Ur Leukocyte Esterase Urine RBC Urine WBC Ur Squamous Epith Cells Ur Transition Epith Cell Ur Renal Epithelial Cell Amorphous Sediment Urine Bacteria Hyaline Casts Granular Casts Ur Culture Indicated? Nasal Screen MRSA (PCR) Salicylates U Opiates 300ng/mL cut Ur Oxycodone Screen Urine Methadone Screen Ur Barbiturates Screen U Tricyclic Antidepress Ur Phencyclidine Scrn Ur Amphetamines Screen U Methamphetamines Scrn Ur MDMA Scrn (Ecstasy) U Benzodiazepines Scrn Urine Cocaine Screen U Marijuana (THC) Screen Ketones SARS-CoV-2 (PCR) Influenza A (RT-PCR) Influenza B (RT-PCR) 09/05/20 09/05/20 09/05/20 04:30 04:30 04:30 WBC 6.2 RBC 5.33 Hgb 15.9 Hct 49.5 MCV 92.7 MCH 29.8 MCHC 32.1 RDW 13.7 Plt Count 167 Neut % (Auto) 69.1 Lymph % (Auto) 24.7 L [place] % (Auto) 5.9 Eos % (Auto) 0.1 L Baso % (Auto) 0.2 Neut # (Auto) 4300 Lymph # (Auto) 1500 [place] # (Auto) 400 Eos # (Auto) 0 Baso # (Auto) 0 PT INR APTT ABG pH ABG pCO2 ABG pO2 ABG HCO3 ABG Total CO2 ABG O2 Saturation ABG Base Excess FiO2 Sodium Cancelled Potassium Cancelled Chloride Cancelled Carbon Dioxide Cancelled BUN Cancelled Creatinine Cancelled Estimated GFR Cancelled BUN/Creatinine Ratio Cancelled Glucose Cancelled Hemoglobin A1c 12.3 H Lactate Calcium Cancelled Phosphorus Magnesium Total Bilirubin AST ALT Alkaline Phosphatase NT-Pro-B Natriuret Pep Total Protein Albumin Globulin Albumin/Globulin Ratio Triglycerides Cholesterol LDL Cholesterol, Calc HDL Cholesterol Amylase Lipase Procalcitonin TSH Cortisol AM Sample Urine Color Urine Appearance Urine pH Ur Specific [place] Urine Protein Urine Glucose (UA) Urine Ketones Urine Occult Blood Urine Nitrate Urine Bilirubin Urine Urobilinogen Ur Leukocyte Esterase Urine RBC Urine WBC Ur Squamous Epith Cells Ur Transition Epith Cell Ur Renal Epithelial Cell Amorphous Sediment Urine Bacteria Hyaline Casts Granular Casts Ur Culture Indicated? Nasal Screen MRSA (PCR) Salicylates U Opiates 300ng/mL cut Ur Oxycodone Screen Urine Methadone Screen Ur Barbiturates Screen U Tricyclic Antidepress Ur Phencyclidine Scrn Ur Amphetamines Screen U Methamphetamines Scrn Ur MDMA Scrn (Ecstasy) U Benzodiazepines Scrn Urine Cocaine Screen U Marijuana (THC) Screen Ketones SARS-CoV-2 (PCR) Influenza A (RT-PCR) Influenza B (RT-PCR) 09/05/20 09/05/20 09/05/20 08:00 08:00 08:00 WBC RBC Hgb Hct MCV MCH MCHC RDW Plt Count Neut % (Auto) Lymph % (Auto) [place] % (Auto) Eos % (Auto) Baso % (Auto) Neut # (Auto) Lymph # (Auto) [place] # (Auto) Eos # (Auto) Baso # (Auto) PT INR APTT ABG pH ABG pCO2 ABG pO2 ABG HCO3 ABG Total CO2 ABG O2 Saturation ABG Base Excess FiO2 Sodium 141 Potassium 4.4 Chloride 115 H Carbon Dioxide 10 L BUN 37 H Creatinine 3.36 H Estimated GFR 20.8 L BUN/Creatinine Ratio 11.0 Glucose 195 H D Hemoglobin A1c Lactate 0.8 Calcium 7.9 L Phosphorus Magnesium Total Bilirubin 0.5 AST 37 ALT 60 H Alkaline Phosphatase 57 NT-Pro-B Natriuret Pep Total Protein 7.5 Albumin 4.1 Globulin 3.4 Albumin/Globulin Ratio 1.2 Triglycerides 293 H Cholesterol 258 H LDL Cholesterol, Calc 158 H HDL Cholesterol 41 Amylase Lipase Procalcitonin TSH Cortisol AM Sample 28.3 H Urine Color Urine Appearance Urine pH Ur Specific [place] Urine Protein Urine Glucose (UA) Urine Ketones Urine Occult Blood Urine Nitrate Urine Bilirubin Urine Urobilinogen Ur Leukocyte Esterase Urine RBC Urine WBC Ur Squamous Epith Cells Ur Transition Epith Cell Ur Renal Epithelial Cell Amorphous Sediment Urine Bacteria Hyaline Casts Granular Casts Ur Culture Indicated? Nasal Screen MRSA (PCR) Salicylates U Opiates 300ng/mL cut Ur Oxycodone Screen Urine Methadone Screen Ur Barbiturates Screen U Tricyclic Antidepress Ur Phencyclidine Scrn Ur Amphetamines Screen U Methamphetamines Scrn Ur MDMA Scrn (Ecstasy) U Benzodiazepines Scrn Urine Cocaine Screen U Marijuana (THC) Screen Ketones 6.75 H SARS-CoV-2 (PCR) Influenza A (RT-PCR) Influenza B (RT-PCR) [facility] Medical History (Updated 09/05/20 @ 07:37 [facility] Sleep apnea with use of continuous positive airway pressure (CPAP) Family History Father Diabetes mellitus Social History household members: spouse Smoking Status: Never smoker Assessment & Plan Assessment & Plan narrative: 1. 39-year-old male presents with diabetic ketoacidosis -patient presents with new onset diabetes, suspect type 2, however it appears that he has type 1 at this time. -patient with a hemoglobin A1c of 12.2, implying chronic hyperglycemia for some time -he remains acidotic and hyperglycemic -no evidence of infection -will continue aggressive hydration, IV insulin to correct acidosis, potassium as needed for electrolyte replacement -once the patient's hyperglycemia and acidosis has resolved will start him on basal bolus insulin -patient will need diabetic Education both for nutritional therapy as well as insulin therapy -patient would benefit from initiation of a statin, and EWA-inhibitor once blood pressure has stabilized 2. Acute renal failure, present on admission -suspect prerenal azotemia related to acidosis and hyperglycemia -will continue aggressive hydration -consider renal ultrasound to rule out obstruction -will avoid nephrotoxic agents until creatinine has normalized 3. Hypotension -suspect this is related to volume status due to his DKA -continue aggressive hydration -taper pressors off 4. DVT prophylaxis, -will initiate Lovenox renally dosed Patient remains critically ill, greater than 40 minutes critical care time has been spent with this patient.
[2020-09-05] MEDS: LACTATED RINGERS 1,000 ML 200 ML IV ×2 (13:00→18:14)
[2020-09-05 13:02] LABS: pH VBG 7.16 (7.33-7.43)
[2020-09-05 13:03] LABS: HCO3 VBG 12 mmol/L (23-28); Oxygen Saturation VBG 63 % (70-75); PCO2 VBG 32.2 mmHg (45-50); PO2 VBG 41 mmHg (35-45); Total CO2 VBG 12 mmol/L (24-29)
[2020-09-05 13:04] LABS: BUN Creatinine Ratio 12.5 (6-22); Blood Urea Nitrogen 39 mg/dL (9-20); Calcium 7.3 mg/dL (8.4-10.2); Carbon Dioxide 13 mmol/L (22-32); Chloride 117 mmol/L (98-107); Estimated Glomerular Filt Rate 22.5 mL/min (>60); Glucose 161 mg/dL (70-100); HEMOLYSIS < 15 (0-50); Potassium 4.5 mmol/L (3.4-5.1); Sodium 143 mmol/L (137-145)
[2020-09-05] MEDS: SODIUM CHLORIDE 0.9% 1,000 ML 200 ML IV (13:06)
--- NOTE | 2020-09-05 13:50 | PT-IP ANOTE ---
1346: PT checks on pt twice in an hour. Nsg reports that he is very lethargic and PT checks in on him, entering room. He is snoring and does not awaken to voice. , Sandra, nearby and PT educates her that another PT will check by for evaluation tomorrow.
[2020-09-05] MEDS: MORPHINE 4 MG/ML INJ IV (15:40)
[2020-09-05] MEDS: ENOXAPARIN 30 MG/0.3 ML SYRINGE SUBCUT (15:42)
--- NOTE | 2020-09-05 16:03 | OT.IPNOTE ---
Attempted to see pt for OT services x2 today. Pt sleeping upon first attempt and per nursing, pt is pain upon second attempt and suggested to hold OT eval for tomorrow. Will hold and continue to follow.
--- NOTE | 2020-09-05 16:12 | CM.DANOTE ---
Discharge Planning/Care Management DCP: assessment: case received, EMR reviewed. Discussed in Team Rounds. Pt is a 39 year old male who admitted last night to care of hospitalist team. Payer: [employer]: Employer: [employer] Hannah noted that pt is currently critically ill, he is newly diagnosed with diabetes, likely type 1.5 and is on insulin drip. When he is stable enough for same he will seeing cork compounder, getting diabetes management training and likely go home with and outpt followup but for now he remains very ill and POC is in process. DCP team will follow to assist with d/c issues and options as these unfold. CM Discharge Assessment Start: 09/05/20 16:08 Freq: Status: Active Protocol: Document 09/05/20 16:09 ITV (Rec: 09/05/20 16:09 ITV [id number]) Discharge Planning Assessment Advance Directives? No History Provided By Medical Record Household Members spouse Independent with ADL's Yes Is patient alert and oriented? Yes Review Status In Process
[2020-09-05 16:58] LABS: BUN Creatinine Ratio 13.8 (6-22); Blood Urea Nitrogen 41 mg/dL (9-20); Calcium 7.4 mg/dL (8.4-10.2); Carbon Dioxide 15 mmol/L (22-32); Chloride 116 mmol/L (98-107); Estimated Glomerular Filt Rate 23.8 mL/min (>60); Glucose 202 mg/dL (70-100); HEMOLYSIS < 15 (0-50); Potassium 4.3 mmol/L (3.4-5.1); Sodium 142 mmol/L (137-145)
--- NOTE | 2020-09-05 17:34 | PC.NURSE ---
Dr. Hannah informed of pt's current anion gap of 11, asked if we need to continue insulin gtt; answer is yes since pt. still is acidotic. Order received to start Lantus at 2100, let pt. eat if he is hungry. Also updated on pt's response to Morphine for abdominal pain which is effective with pain down to 0/10.
--- NOTE | 2020-09-05 18:25 | PC.NURSE ---
02 2L NC applied due to desaturation, pt. has been snoring/sleeping especially after given Morphine.
[2020-09-05] MEDS: INSULIN DRIP PREMIX 100 UNIT/100 ML PLAST..BAG 9.88 UNIT IV (19:02)
[2020-09-05] MEDS: INSULIN GLARGINE 100 UNIT/ML 3ML PEN 50 UNIT SUBCUT (19:32)
[2020-09-05 20:57] LABS: BUN Creatinine Ratio 14.2 (6-22); Blood Urea Nitrogen 42 mg/dL (9-20); Calcium 7.4 mg/dL (8.4-10.2); Carbon Dioxide 18 mmol/L (22-32); Chloride 118 mmol/L (98-107); Estimated Glomerular Filt Rate 24.1 mL/min (>60); Glucose 144 mg/dL (70-100); HEMOLYSIS < 15 (0-50); Potassium 4.5 mmol/L (3.4-5.1); Sodium 141 mmol/L (137-145)
[2020-09-06] VITALS (11 sets, daily range): BP systolic 105–164; BP diastolic 54–84; PULSE 96–111; RESP 16–22; TEMP 36.2–37.1; O2SAT 96–100
[2020-09-06 05:12] LABS: Add Manual Diff / Slide Review NO; Basophils Absolute Auto 0 /uL (0-100); Basophils Percent Auto 0.2 % (0-2); Eosinophils Absolute Auto 0 /uL (0-450); Eosinophils Percent Auto 0.1 % (2-4); Hemoglobin 13.9 g/dL (13.5-17.5); Lymphocytes Absolute Auto 900 /uL (1100-4500); Lymphocytes Percent Auto 15.4 % (25-40); Mean Corpuscular HGB Conc 32.4 % (30-36); Mean Corpuscular Hemoglobin 29.6 PG (26-34); Mean Corpuscular Volume 91.2 fL (80-100); Monocytes Absolute Auto 400 /uL (0-900); Neutrophils Absolute Auto 4300 /uL (1500-7000); Neutrophils Percent Auto 77.3 % (50-75); Platelet Count 136 X10^3/uL (150-400); Red Blood Cell Count 4.72 X10^6/uL (4.5-5.9); Red Cell Distribution Width 13.8 % (11.6-14.8); White Blood Cell Count 5.5 X10^3/uL (4.5-11.0)
[2020-09-06 05:23] LABS: BUN Creatinine Ratio 13.8 (6-22); Blood Urea Nitrogen 48 mg/dL (9-20); Calcium 7.6 mg/dL (8.4-10.2); Carbon Dioxide 15 mmol/L (22-32); Chloride 113 mmol/L (98-107); Estimated Glomerular Filt Rate 19.9 mL/min (>60); Glucose 374 mg/dL (70-100); HEMOLYSIS 17 (0-50); Sodium 136 mmol/L (137-145)
[2020-09-06] MEDS: MAG HYDROX/ALUM/SIMETH 30 ML UDC PO (05:37)
[2020-09-06 05:52] LABS: Thyroid Stimulating Hormone 0.574 uIU/mL (0.47-4.68)
[2020-09-06] MEDS: SODIUM CHLORIDE 0.9% 1,000 ML 1000 ML IV (05:59)
--- NOTE | 2020-09-06 06:01 | PC.NURSE ---
0600- Labs called to OSWALD Samuel and order rec. Patient remains lethargic but appropriate. Will monitor.
[2020-09-06] MEDS: INSULIN ASPART 100 UNIT/ML 10ML VIAL 12 UNIT SUBCUT (06:45)
--- NOTE | 2020-09-06 07:21 | DI.RAD.S_ITS ---
PROCEDURE: XR CHEST 1V INDICATIONS: hypoxia TECHNIQUE: One view of the chest was acquired. COMPARISON: [facility], CR, XR CHEST 1V, 09/05/2020, 8:54. FINDINGS: Surgical changes and devices: Right internal jugular central venous catheter tip is in SVC. Lungs and pleura: Lungs are clear. No pleural effusions or pneumothorax. Mediastinum: Mediastinal contours appear normal. Heart size is normal. Bones and chest wall: No suspicious bony lesions. Overlying soft tissues appear unremarkable. IMPRESSION: No acute cardiopulmonary pathology. Dictated by: Barry Mac M.D. on 09/06/2020 at 8:06 Approved by: Barry Mac M.D. on 09/06/2020 at 8:06
--- NOTE | 2020-09-06 07:27 | DI.US.S_ITS ---
PROCEDURE: US RENAL COMPLETE INDICATIONS: ACUTE RENAL FAILURE TECHNIQUE: Real-time scanning was performed of the kidneys and bladder, with image documentation. COMPARISON: [facility], CT, CT KIDNEY URETER BLADDER (KUB), 09/04/2020, 20:29. FINDINGS: Kidneys: Kidneys are normal in size. Right kidney measures 12.8 cm long; left kidney measures 11.2 cm long. Right renal cortical thickness is 2.5 cm; left renal cortical thickness is 2.5 cm. Renal cortical echotexture is normal. No hydronephrosis or nephrolithiasis. No suspicious solid mass lesions. Bladder: The urinary bladder is not distended, and is poorly seen. Miscellaneous: No free pelvic fluid. IMPRESSION: Normal appearing kidneys, without hydronephrosis. Dictated by: Topher Rae M.D. on 09/06/2020 at 10:07 Approved by: Topher Rae M.D. on 09/06/2020 at 10:08
[2020-09-06] MEDS: INSULIN ASPART 100 UNIT/ML INSULN PEN SUBCUT ×4 (09:07→21:32)
--- NOTE | 2020-09-06 10:38 | P.PN_ITS ---
Subjective Subjective Date Patient Seen: 09/06/20 Interval history: The patient is a 39-year-old male who was admitted to the hospital for diabetic ketoacidosis, new onset diabetes. Blood sugars were markedly elevated. The patient was very acidotic. With IV insulin his blood sugars improved, his anion gap has since closed. He was also found to have acute renal failure. The patient was hypotensive. He is now getting IV hydration. He is somewhat lethargic still today. However he has made significant improvement. Blood sugars continued to be elevated and will need to adjust insulin accordingly. Patient complained of abdominal pain yesterday, he denies abdominal pain today. Exam Vital Signs (past 8 hours): - 09/06/20 04:29 09/06/20 06:00 09/06/20 07:32 Temperature 98.8 F Pulse Rate 104 H Respiratory Rate 16 Blood Pressure 140/79 Pulse Oximetry 97 100 99 09/06/20 08:00 09/06/20 09:23 Temperature 97.1 F L Pulse Rate 105 H 111 H Respiratory Rate 16 16 Blood Pressure 105/54 L Pulse Oximetry 98 99 Oxygen Delivery Method Room Air Oxygen Flow Rate 0 Narrative Exam Narrative: Lethargic male, sleeping but easily arousable Lungs: Decreased breath sounds but clear to auscultation Cardiac exam: Regular rate and rhythm normal S1-S2 Abdomen: Soft, nontender, no palpable masses, no board-like rigidity, no rebound tenderness Extremities: No edema Objective Labs Result Diagrams: 09/06/20 04:30 09/06/20 04:30 Labs: Laboratory Results - last 24 hr 09/05/20 09/05/20 09/05/20 12:35 12:40 16:40 WBC RBC Hgb Hct MCV MCH MCHC RDW Plt Count Neut % (Auto) Lymph % (Auto) [place] % (Auto) Eos % (Auto) Baso % (Auto) Neut # (Auto) Lymph # (Auto) [place] # (Auto) Eos # (Auto) Baso # (Auto) VBG pH 7.16 L* VBG pCO2 32.2 L VBG pO2 41 VBG HCO3 12 L VBG Total CO2 12 L VBG O2 Saturation 63 L VBG Base Excess -17.0 L Sodium 143 142 Potassium 4.5 4.3 Chloride 117 H 116 H Carbon Dioxide 13 L 15 L BUN 39 H 41 H Creatinine 3.13 H 2.98 H Estimated GFR 22.5 L 23.8 L BUN/Creatinine Ratio 12.5 13.8 Glucose 161 H 202 H Calcium 7.3 L 7.4 L TSH 09/05/20 09/06/20 09/06/20 20:30 04:30 04:30 WBC 5.5 RBC 4.72 Hgb 13.9 Hct 43.0 MCV 91.2 MCH 29.6 MCHC 32.4 RDW 13.8 Plt Count 136 L Neut % (Auto) 77.3 H Lymph % (Auto) 15.4 L [place] % (Auto) 7.0 Eos % (Auto) 0.1 L Baso % (Auto) 0.2 Neut # (Auto) 4300 Lymph # (Auto) 900 L [place] # (Auto) 400 Eos # (Auto) 0 Baso # (Auto) 0 VBG pH VBG pCO2 VBG pO2 VBG HCO3 VBG Total CO2 VBG O2 Saturation VBG Base Excess Sodium 141 136 L Potassium 4.5 5.0 Chloride 118 H 113 H Carbon Dioxide 18 L 15 L BUN 42 H 48 H Creatinine 2.95 H 3.49 H Estimated GFR 24.1 L 19.9 L BUN/Creatinine Ratio 14.2 13.8 Glucose 144 H 374 H D Calcium 7.4 L 7.6 L TSH 09/06/20 04:30 WBC RBC Hgb Hct MCV MCH MCHC RDW Plt Count Neut % (Auto) Lymph % (Auto) [place] % (Auto) Eos % (Auto) Baso % (Auto) Neut # (Auto) Lymph # (Auto) [place] # (Auto) Eos # (Auto) Baso # (Auto) VBG pH VBG pCO2 VBG pO2 VBG HCO3 VBG Total CO2 VBG O2 Saturation VBG Base Excess Sodium Potassium Chloride Carbon Dioxide BUN Creatinine Estimated GFR BUN/Creatinine Ratio Glucose Calcium TSH 0.574 [facility] Medical History (Updated 09/05/20 @ 07:37 by KENDRICK Payton) Sleep apnea with use of continuous positive airway pressure (CPAP) Family History Father Diabetes mellitus Social History household members: spouse Smoking Status: Never smoker Assessment & Plan Assessment & Plan narrative: Impression 1. 39-year-old male admitted with diabetic ketoacidosis -patient presents with new onset diabetes -hemoglobin A1c 12.2 -patient received over 100 units of insulin for improved glycemic control and resolution of acidosis -diabetic ketoacidosis has now resolved -blood sugars continue to be elevated -will initiate medical nutrition therapy, diabetic Education, insulin teaching today -will continue Lantus at 60 units at night, plus pre meal insulin, will adj ust accordingly 2. Acute renal failure -suspect prerenal azotemia related to his DKA -will continue IV hydration -will obtain renal ultrasound to rule out obstruction -will continue to avoid nephrotoxic agent 3. Obstructive sleep apnea -patient apparently on CPAP at home -will continue Patient will continue with DVT prophylaxis Will start him on a statin given his risk factors with diabetes Will add low-dose aspirin as Will defer EWA-inhibitor at this Patient will need outpatient PCP for ongoing management Anticipate discharge in 1-2 days
--- NOTE | 2020-09-06 12:15 | OT.IPNOTE ---
Attempted to see pt for OT services. Per nursing, pt is lethargic and sleeping at this time. Nursing requested to hold till tomorrow. Will hold and continue to follow.
--- NOTE | 2020-09-06 12:15 | PT.IIE ---
Medical History (Last Updated 09/05/20 @ 07:37 by Cheyanne Samuel, [facility]) Sleep apnea with use of continuous positive airway pressure (CPAP) Physical Therapy Inpatient Evaluation/Re-Eval M1 PT/OT-IP Prior Functional Status Start: 09/06/20 08:49 Freq: NEEDED Status: Active Protocol: Document 09/06/20 11:02 JOSÉ LUIS (Rec: 09/06/20 12:15 SAK [id number]) Medical Review Prior Functional Status Medical History Reviewed Yes Diet/Fluid Consistency Regular Communication no difficulty Mobility and Gait independent no device Activities of Daily Living and IADL's independent Social History Household Members spouse Living Arrangements House Home Environment Standard Height Toilet,Tub/ Shower 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 PT-IP Current Condition Start: 09/06/20 08:49 Freq: NEEDED Status: Active Protocol: Document 09/06/20 11:02 JOSÉ LUIS (Rec: 09/06/20 12:15 [facility] [id number]) Physical Therapy Current Condition Current Condition Evaluation Date 09/06/20 Treatment Diagnosis 09/05/20 M3 PT-IP Subjective Start: 09/06/20 08:49 Freq: NEEDED Status: Active Protocol: Document 09/06/20 11:02 SAK (Rec: 09/06/20 12:15 [facility] [id number]) Subjective Physical Therapy Visit Type Type Initial Evaluation Visit Start Time 08:50 Visit Stop Time 09:20 Total Visit Minutes 30 Number of CLINICAL RESOURCE NURSE Visits 0 Physical Therapy Visit Comments Patient Comments patient lethargic, minimal, quiet verbalizations Patient Goals go home Therapy Pain Assessment Pain When Pain Assessed At Rest Pain Present Pain Present Denied Pain M4 PT-IP Mobility and Gait Start: 09/06/20 08:49 Freq: NEEDED Status: Active Protocol: Document 09/06/20 11:02 JOSÉ LUIS (Rec: 09/06/20 12:15 SAK [id number]) PT-Bed Mobility Assessment Supine to Sit Supine to Sit Minimal Assistance Sit to Supine Sit to Supine Minimal Assistance Scooting Scooting to Edge of Bed Minimal Assistance PT-Transfer Assessment Sit to and From Stand Sit to and from Stand Minimal Assistance Equipment Transfer Assistive Device Gait Belt,Front Wheeled Walker Transfer Ability Level of Assist Minimal Assistance Comments Mobility Comments much encouragement, cues to keep eyes open Gait Assessment Gait Gait Assistance Required: Minimum Assistance Distance (Feet) 12 Able to Maintain Weight Bearing Status Yes During Gait Assistive Devices Assistive Device Gait Belt Orthotic/Prosthetic Devices or Brace: No Gait Deviations General Gait Pattern Decreased Stride Length, Decreased Feet Clearance Factors Limiting Gait Function Factors Limiting Gait Function Decreased Strength Comments Gait Comments lethargic, slow gait. No LOB PT-Balance Assessment Sitting Balance and Reactions Static Sitting Balance Ability Good Dynamic Sitting Balance Ability Good Standing Balance and Reactions Static Standing Balance Ability Fair Dynamic Standing Balance Ability Fair M5 PT-IP Objective Assessments Start: 09/06/20 08:49 Freq: NEEDED Status: Active Protocol: Document 09/06/20 11:02 [facility] (Rec: 09/06/20 12:15 [facility] [id number]) Orientation Orientation/Cognition Level of Alertness Lethargic Orientation Name,Date,Place,Situation Language Function Ability No Deficits Noted Safety Awareness Understands Safety Issues Memory Description No Deficits Noted Gross Range of Motion Upper Extremity ROM Assessment Within Functional Limits Lower Extremity ROM Assessment Within Functional Limits Strength Upper Extremity Strength Assessment Within Functional Limits Lower Extremity Strength Assessment Within Functional Limits Comments Strength Comments No MMT due to lethargy Coordination Assessment Gross Coordination Gross Coordination WNL Sensation Assessment Sensation Gross Sensation WNL Comments Sensation Comments denied N/T Muscle Tone Muscle Tone WNL Yes M6 PT-IP Treatment Start: 09/06/20 08:49 Freq: NEEDED Status: Active Protocol: Document 09/06/20 11:02 [facility] (Rec: 09/06/20 12:15 [facility] [id number]) Physical Therapy Treatment Other Treatments Other Treatment Performed shallow knee bends x 3 at bedside prior to walking M7 PT-IP Assessment and Plan Start: 09/06/20 08:49 Freq: NEEDED Status: Active Protocol: Document 09/06/20 11:02 [facility] (Rec: 09/06/20 12:15 [facility] [id number]) PT Summary Assessment and Plan Potential Rehabilitation Potential Good Status of Condition at Evaluation Evolving Summary Impairments Transfers,Gait,Activity Tolerance Assessment Summary Patient presents with decreased ctivity tolerance and requirement for assistance with all mobility skills due to new onset DM Type 1.5. He was difficult to arouse but with encouragement of PT, , and RN patient willing to sit at EOB, do a few squats at bedside to assess stability of LE's, and walk around his bed to the chair. Patient fatigued. Was left sitting up in chair, legs elevated, tray table and call light in reach . Patient in care of RN. Will benefit from further inpatient PT to help him improve his mobility and activity tolerance to allow him to safely return home with his . Goals Bed Mobility Goal Independent Transfer Goal Independent Gait Goal Independent Gait Distance 200' Frequency of Treatment Frequency Of Treatment Once a Day Treatment Plan Physical Therapy Treatment Plan Bed Mobility Training,Transfer Training,Gait Training, Therapeutic Exercise,Discharge Planning Recommendations To Nursing Amount of Assist Needed 1 Person Assist Discharge Recommendations PT Discharge Recommendations Home with Assistance Transportation Needs at Discharge Private Vehicle
[2020-09-06] MEDS: INSULIN ASPART 100 UNIT/ML INSULN PEN 10 UNIT SUBCUT ×3 (12:38→21:33)
[2020-09-06] MEDS: ASPIRIN EC 81 MG TABLET PO (12:44)
[2020-09-06] MEDS: LACTATED RINGERS 1,000 ML 150 ML IV ×2 (12:44→21:47)
--- NOTE | 2020-09-06 14:23 | CM.DPC ---
DCP Cont: Checked in with patient, , Sandra, was at bedside. Discussed discharge planning. Confirmed that patient does have his provider at [facility]. 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 mentioned, she does think that he will be home bound for a while, it's hard for him to get out, and will be off of work for a while. Mentioned home health, and having a nurse come out to do teaching regarding his insulin. Also, he would benefit with P.T, due to weakness, as well as O.T. is a case managers for [facility] [employer] [employer], and is familiar with home health, and how it works. She is familiar with [facility], and would be their choice of agencies. P: DCP to continue to follow. is aware that for home health, would need a authorization, which would not occur until next week. Patient originally had an appointment on Sep 18 with his primary care provider, and may attempt to get a sooner appointment. Patient could possibly be ready to go home tomorrow, will need face to face signed. Meghan Scales RN/Industrial Engineering Analyst
[2020-09-06] MEDS: INSULIN GLARGINE 100 UNIT/ML 3ML PEN 60 UNIT SUBCUT (21:31)
[2020-09-06] MEDS: ATORVASTATIN 20 MG TABLET 40 MG PO (21:34)
[2020-09-07] VITALS (11 sets, daily range): BP systolic 114–171; BP diastolic 57–93; PULSE 90–107; RESP 16–24; TEMP 36.4–37.2; O2SAT 96–99
[2020-09-07] MEDS: LACTATED RINGERS 1,000 ML 150 ML IV ×2 (04:04→10:21)
[2020-09-07] MEDS: ACETAMINOPHEN 325 MG TABLET 650 MG PO ×2 (04:36→15:33)
--- NOTE | 2020-09-07 04:42 | PC.NURSE ---
0430- Patient c/o headache 01/12. Medicated per order. BG checked to make sure it was not low see documentation. Will monitor.
[2020-09-07 05:07] LABS: C Peptide 1.4 ng/mL (1.1-4.4); Insulin Level Total 9.1 uIU/mL (2.6-24.9)
[2020-09-07 06:24] LABS: Add Manual Diff / Slide Review NO; Basophils Absolute Auto 0 /uL (0-100); Basophils Percent Auto 0.2 % (0-2); Eosinophils Absolute Auto 0 /uL (0-450); Eosinophils Percent Auto 0.8 % (2-4); Hematocrit 40.4 % (41-53); Hemoglobin 13.5 g/dL (13.5-17.5); Lymphocytes Absolute Auto 800 /uL (1100-4500); Lymphocytes Percent Auto 21.5 % (25-40); Mean Corpuscular HGB Conc 33.4 % (30-36); Mean Corpuscular Hemoglobin 29.5 PG (26-34); Mean Corpuscular Volume 88.5 fL (80-100); Monocytes Absolute Auto 300 /uL (0-900); Monocytes Percent Auto 7.8 % (3-14); Neutrophils Absolute Auto 2800 /uL (1500-7000); Neutrophils Percent Auto 69.7 % (50-75); Platelet Count 128 X10^3/uL (150-400); Red Blood Cell Count 4.57 X10^6/uL (4.5-5.9); Red Cell Distribution Width 13.6 % (11.6-14.8)
[2020-09-07 06:31] LABS: Alanine Aminotransferase 37 IU/L (<50); Albumin 3.3 g/dL (3.5-5.0); Albumin Globulin Ratio 1.1 (1.0-2.8); Alkaline Phosphatase 45 U/L (38-126); Aspartate Aminotransferase 27 IU/L (17-59); BUN Creatinine Ratio 16.3 (6-22); Bilirubin Total 0.6 mg/dL (0.2-1.3); Blood Urea Nitrogen 41 mg/dL (9-20); Carbon Dioxide 19 mmol/L (22-32); Chloride 113 mmol/L (98-107); Estimated Glomerular Filt Rate 29.1 mL/min (>60); Globulin 2.9 g/dL (1.7-4.1); Glucose 322 mg/dL (70-100); HEMOLYSIS 16 (0-50); Sodium 138 mmol/L (137-145); Total Protein 6.2 g/dL (6.3-8.2)
[2020-09-07] MEDS: INSULIN GLARGINE 100 UNIT/ML 3ML PEN 40 UNIT SUBCUT ×2 (08:22→21:48)
[2020-09-07] MEDS: INSULIN ASPART 100 UNIT/ML INSULN PEN 10 UNIT SUBCUT ×4 (08:22→21:47)
[2020-09-07] MEDS: INSULIN ASPART 100 UNIT/ML INSULN PEN SUBCUT ×4 (08:23→21:50)
[2020-09-07] MEDS: ASPIRIN EC 81 MG TABLET PO (08:23)
[2020-09-07] MEDS: ENOXAPARIN 30 MG/0.3 ML SYRINGE SUBCUT (08:23)
[2020-09-07] MEDS: AMLODIPINE 5 MG TABLET 10 MG PO (10:15)
--- NOTE | 2020-09-07 10:39 | P.PN_ITS ---
Subjective Subjective Date Patient Seen: 09/07/20 Interval history: The patient is a 39-year-old male who was admitted to the hospital with diabetic ketoacidosis. This was new onset diabetes. The patient has had a 20 lb weight loss, polyuria and polydipsia. The patient was somewhat lethargic this morning but is arousable and sitting up to a chair. He has no pain or shortness of breath. His blood sugars continue to be elevated in the 300s. His insulin will be adjusted accordingly. Blood pressure has improved with IV hydration. His renal failure slowly resolved Exam Vital Signs (past 8 hours): - 09/07/20 04:00 09/07/20 08:00 Temperature 97.9 F 97.6 F Pulse Rate 102 H 107 H Respiratory Rate 18 22 Blood Pressure 171/85 H 114/57 L Pulse Oximetry 99 97 Oxygen Delivery Method Room Air Oxygen Flow Rate 0 Narrative Exam Narrative: Sleepy pleasant gentleman resting comfortably in no obvious distress Lungs: Clear to auscultation Cardiac exam: Regular rate and rhythm, normal S1-S2 Abdomen: Soft nontender nondistended Extremities: No edema Objective Labs Result Diagrams: 09/07/20 06:00 09/07/20 06:00 Labs: Laboratory Results - last 24 hr 09/04/20 09/07/20 09/07/20 22:50 06:00 06:00 WBC 4.0 L RBC 4.57 Hgb 13.5 Hct 40.4 L MCV 88.5 MCH 29.5 MCHC 33.4 RDW 13.6 Plt Count 128 L Neut % (Auto) 69.7 Lymph % (Auto) 21.5 L [place] % (Auto) 7.8 Eos % (Auto) 0.8 L Baso % (Auto) 0.2 Neut # (Auto) 2800 Lymph # (Auto) 800 L [place] # (Auto) 300 Eos # (Auto) 0 Baso # (Auto) 0 Sodium 138 Potassium 4.0 Chloride 113 H Carbon Dioxide 19 L BUN 41 H Creatinine 2.51 H Estimated GFR 29.1 L BUN/Creatinine Ratio 16.3 Glucose 322 H Total Insulin 9.1 C-Peptide 1.4 Calcium 8.0 L Total Bilirubin 0.6 AST 27 ALT 37 Alkaline Phosphatase 45 Total Protein 6.2 L Albumin 3.3 L Globulin 2.9 Albumin/Globulin Ratio 1.1 [facility] Medical History (Updated 09/05/20 @ 07:37 by [facility]) Sleep apnea with use of continuous positive airway pressure (CPAP) Family History Father Diabetes mellitus Social History household members: spouse Smoking Status: Never smoker Assessment & Plan Assessment & Plan narrative: Impression 1. New onset diabetes/diabetic ketoacidosis, present on admission, DKA now resolved -patient presented with diabetic ketoacidosis -he has required close to 100 units of insulin daily to manage his blood sugar -acidosis and anion gap have improved -will increase his insulin to Lantus 40 units twice daily plus pre meal insulin and correctional insulin as well -statin added to his regimen given his diabetes -patient will be placed on a baby aspirin as well -diabetic Education to start today -patient will be discharged home on insulin -he is fairly weak, PT OT consultation to help with strengthening 2. Acute renal failure -suspect a combination of prerenal azotemia from hypovolemic shock and hypotension -anticipate the patient may have hypertensive renal disease as well -will continue to monitor renal function -will start EWA-inhibitor once creatinine is less than 2.0 3. Hypovolemic shock, present on admission, now resolved -blood pressure improved with IV hydration
--- NOTE | 2020-09-07 11:57 | CM.DPC ---
Addendum entered by Meghan Scales R.N. 09/07/20 15:52: Called Radha at [facility]. She received referral, and they will work on [facility] [employer] authorization. Addendum entered by Meghan Scales R.N. 09/07/20 12:03: Patient's , Sandra, called back and stated that patient's primary care provider is Nilam Polk, at [facility]. Original Note: DCP Cont: Had Dr. Hannah sign a face to face for patient. Asked , Sandra, if she knows the name of his primary provider. She stated that she can get the name and call care management back. They are requesting [facility]. stated that he is ambulatory, but weak, and will not be going out of the house for a while. Agreed that patient would benefit with nursing visits for teaching, insulin and diabetic education. Second option if [facility] doesn't authorize home health would be outpatient diabetic teaching through his primary care provider. P: DCP to continue to follow. Patient could potentially be discharged home today, but this depends upon blood sugars and renal function. Tomorrow most likely if not today. Will go ahead and send referral to [facility] for them to review. Meghan Scales RN/Rv Detailer
--- NOTE | 2020-09-07 13:19 | PT.IPTN ---
Current Diagnoses Type 1 diabetes mellitus with ketoacidosis without coma (09/04/20) Physical Therapy Treatment Note M2 PT-IP Current Condition Start: 09/06/20 08:49 Freq: NEEDED Status: Active Protocol: Document 09/06/20 11:02 SAK (Rec: 09/06/20 12:15 SAK [id number]) Physical Therapy Current Condition Current Condition Evaluation Date 09/06/20 Treatment Diagnosis 09/05/20 M3 PT-IP Subjective Start: 09/06/20 08:49 Freq: NEEDED Status: Active Protocol: Document 09/07/20 13:03 CLB (Rec: 09/07/20 13:54 CLB [id number]) Subjective Physical Therapy Visit Type Type Treatment Note Visit Start Time 13:03 Visit Stop Time 13:19 Total Visit Minutes 16 Notes Co-treat with OT Number of COKEMAN Visits 1 Physical Therapy Visit Comments Patient Comments pt agreeable to do therapy Patient Goals go home Therapy Pain Assessment Pain When Pain Assessed At Rest Pain Present Pain Present Denied Pain M4 PT-IP Mobility and Gait Start: 09/06/20 08:49 Freq: NEEDED Status: Active Protocol: Document 09/07/20 13:03 CLB (Rec: 09/07/20 13:54 CLB [id number]) PT-Transfer Assessment Sit to and From Stand Sit to and from Stand Standby Assistance Equipment Transfer Assistive Device Gait Belt Transfer Ability Level of Assist Standby Assistance Comments Mobility Comments Pt stood and ambulated ~40ft w /o AD and stood for BP due to stating mild dizziness, BP 157 /95 (RN approved further ambulation), Pt then ambulated into shower and back out, then sat and stood from toilet SBA. Pt then ambulated to chair and sat SBA. Pt left in chair with all needs within reach and present. Gait Assessment Gait Gait Assistance Required: Standby Assistance,1 Person Assist Distance (Feet) 40 Able to Maintain Weight Bearing Status Yes During Gait Assistive Devices Assistive Device Gait Belt Orthotic/Prosthetic Devices or Brace: No Gait Deviations General Gait Pattern Decreased Stride Length, Decreased Feet Clearance Factors Limiting Gait Function Factors Limiting Gait Function Decreased Strength Comments Gait Comments lethargic, slow gait. No LOB with c/o mild dizziness. Stair Climbing Assessment Comments Stair Climbing Comments needs to do before d/c M5 PT-IP Objective Assessments Start: 09/06/20 08:49 Freq: NEEDED Status: Active Protocol: Document 09/06/20 11:02 SAK (Rec: 09/06/20 12:15 SAK [id number]) Orientation Orientation/Cognition Level of Alertness Lethargic Orientation Name,Date,Place,Situation Language Function Ability No Deficits Noted Safety Awareness Understands Safety Issues Memory Description No Deficits Noted Gross Range of Motion Upper Extremity ROM Assessment Within Functional Limits Lower Extremity ROM Assessment Within Functional Limits Strength Upper Extremity Strength Assessment Within Functional Limits Lower Extremity Strength Assessment Within Functional Limits Comments Strength Comments No MMT due to lethargy Coordination Assessment Gross Coordination Gross Coordination WNL Sensation Assessment Sensation Gross Sensation WNL Comments Sensation Comments denied N/T Muscle Tone Muscle Tone WNL Yes M6 PT-IP Treatment Start: 09/06/20 08:49 Freq: NEEDED Status: Active Protocol: Document 09/06/20 11:02 SAK (Rec: 09/06/20 12:15 [facility] [id number]) Physical Therapy Treatment Other Treatments Other Treatment Performed shallow knee bends x 3 at bedside prior to walking M7 PT-IP Assessment and Plan Start: 09/06/20 08:49 Freq: NEEDED Status: Active Protocol: Document 09/07/20 13:03 CLB (Rec: 09/07/20 13:54 CLB [id number]) PT Summary Assessment and Plan Potential Rehabilitation Potential Good Status of Condition at Evaluation Evolving Summary Impairments Transfers,Gait,Activity Tolerance Progress Towards Goals Progressing Toward Goals Assessment Summary Pt with mild improvement with activity tolerance able to ambulate SBA ~40ft. Pt with mild dizziness during gait with BP 157/95 in standing. Anticipate pt will continue to improve and will d/c home with assist. Stair training will need to be conducted before d/c. Goals Bed Mobility Goal Independent Transfer Goal Independent Gait Goal Independent Gait Distance 200' Frequency of Treatment Frequency Of Treatment Once a Day Treatment Plan Physical Therapy Treatment Plan Bed Mobility Training,Transfer Training,Gait Training, Therapeutic Exercise,Discharge Planning Other Recommendations and Next Treatment increase gait distance as able Focus and stair training with . Recommendations To Nursing Amount of Assist Needed 1 Person Assist Discharge Recommendations PT Discharge Recommendations Home with Assistance Transportation Needs at Discharge Private Vehicle
--- NOTE | 2020-09-07 13:47 | OT.IP.EVAL ---
Current Diagnoses Type 1 diabetes mellitus with ketoacidosis without coma (09/04/20) Past Medical History (Last Updated 09/05/20 @ 07:37 by REMI Payton) Sleep apnea with use of continuous positive airway pressure (CPAP) Occupational Therapy Inpatient Evaluation/Re-Eval M1 PT/OT-IP Prior Functional Status Start: 09/06/20 08:49 Freq: NEEDED Status: Active Protocol: Document 09/06/20 11:02 SAK (Rec: 09/06/20 12:15 SAK [id number]) Medical Review Prior Functional Status Medical History Reviewed Yes Diet/Fluid Consistency Regular Communication no difficulty Mobility and Gait independent no device Activities of Daily Living and IADL's independent Social History Household Members spouse Living Arrangements House Home Environment Standard Height Toilet,Tub/ Shower Employment Status Computer Numerical Control Programmer Employed Additional Social History Comment contractor for [id number] M1 PT/OT-IP Prior Functional Status Start: 09/07/20 13:25 Freq: NEEDED Status: Active Protocol: Document 09/07/20 13:26 RM (Rec: 09/07/20 13:46 RM [id number]) Medical Review Prior Functional Status Medical History Reviewed Yes Diet/Fluid Consistency Regular Communication Able to make needs known. 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 He has 4 children (22,15,13, and 7 years old). Social History Household Members spouse,children Living Arrangements House Number of Floors (Floors) Two Floors Number of Stairs To Enter/Railing? 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 She is also currently working from home and will be able to assist patient as needed with plan to take off time for work for next week to assist with return home. M2 OT-IP Current Condition Start: 09/07/20 13:25 Freq: Status: Active Protocol: Document 09/07/20 13:26 RM (Rec: 09/07/20 13:46 RM [id number]) Occupational Therapy Current Condition Current Condition Evaluation Date 09/07/20 Treatment Diagnosis diabetic keto acidosis Diagnosis Onset Date 09/04/20 M3 OT- IP Subjective and Pain Start: 09/07/20 13:25 Freq: Status: Active Protocol: Document 09/07/20 13:26 RM (Rec: 09/07/20 13:46 RM [id number]) OT- Subjective Occupational Therapy Visit Type Type Initial Evaluation Visit Start Time 10:00 Visit Stop Time 10:25 Total Visit Minutes 41 Notes seen for 2 sessions: 10-10:25 13:03-13:19 co-tx w/ [employer] Leana Snowden Occupational Therapy Visit Comments Patient Comments When am I going to not feel so tired? Patient/Caregiver Goals Be active with my kids. OT Pain Assessment Pain When Pain Assessed During Mobility Pain Present Pain Present Denied Pain M4 OT- IP ADL's Start: 09/07/20 13:25 Freq: Status: Active Protocol: Document 09/07/20 13:26 RM (Rec: 09/07/20 13:46 RM [id number]) OT [id number] General Evaluation Self-Feeding Ability Independent OT ADL-Dressing General Eval Upper Body Dressing Ability Independent Lower Body Dressing Ability Standby Assistance OT ADL-Toileting General Evaluation Toileting Ability Standby Assistance OT ADL-Bathing Comments OT Bathing Comments reports shower on 09/06/20 and completing for patient due to fatigue and weakness. Discussed plan for shower assessment pending activity tolerance after stair training with PT. M5 OT- IP IADL's Start: 09/07/20 13:25 Freq: Status: Active Protocol: Document 09/07/20 13:26 RM (Rec: 09/07/20 13:46 RM [id number]) OT-Instrumental Activities of Daily Living Deficits IADL Deficits Identified Deficits M6 OT- IP Functional Cognition Start: 09/07/20 13:25 Freq: Status: Active Protocol: Document 09/07/20 13:26 RM (Rec: 09/07/20 13:46 RM [id number]) Cognitive Factors Limiting Selfcare Function Cognitive Ability Level of Alertness Drowsy Patient Orientation Name,Month,Year,Place, Situation Attention Span Ability Unable to Sustain Attention Ability to Follow Commands Able to Follow One Step Commands Cognitive Comments Cognitive Assessment Comments Patient somnolent with AM session with difficulty sustaining attention with activity limited to bed mobility and transfer to chair . Improved sustained attention in PM with patient ambulating in room including accessing BR for toilet and shower transfers. OT- Vision and Hearing OT- Hearing Assessment OT- Hearing Assessment WFL OT- Vision Assessment Visual Acuity WFL Vision Assessment Comments Reports some blurry vision on inital admit that has resolved and plans to follow-up with regenerator operator. M7 OT- IP Mobility and Balance Start: 09/07/20 13:25 Freq: Status: Active Protocol: Document 09/07/20 13:26 RM (Rec: 09/07/20 13:46 RM [id number]) OT- Bed Mobility Assessment Rolling Type of Rolling Roll to Right Level of Assistance Standby Assistance Supine to Sit Supine to Sit Assist Minimal Assistance Scooting Scooting to Edge of Bed Standby Assistance Scooting Up and Down in Bed Standby Assistance OT-Transfer Assessment Sit to and From Stand Sit to and from Stand Contact Guard Assistance Transfers Transfer Ability Contact Guard Assistance Technique Transfer Destination Chair,Shower Stall,Toilet Devices Transfer Assistive Devices Gait Belt Comments Mobility Comments Not safe for ambulation in AM d/t drowsiness and decreased sustained attention. Improved in PM and tolerating ambulation in room including accessing BR w/o AD. CGA in AM transfer EOB to chair. SBA in PM with transfer to/ from chair and toilet. BP: 158/90 supine (AM session) 141/69 seated (AM session) 157/95 standing (PM session) *RN alerted to elevated BP and cleared for activity as tolerated OT- Gait Assessment Gait Gait Assistance Required: Standby Assistance Assistive Devices Assistive Device Gait Belt OT- Balance Assessment Sitting Balance and Reactions Static Sitting Balance Ability Good Dynamic Sitting Balance Ability Good Standing Balance and Reactions Static Standing Balance Ability Good Dynamic Standing Balance Ability Good M8 OT- IP Objective Assessments Start: 09/07/20 13:25 Freq: Status: Active Protocol: Document 09/07/20 13:26 RM (Rec: 09/07/20 13:46 RM [id number]) OT Gross Range of Motion Upper Extremity Range of Motion Assessment Within Functional Limits OT Strength Upper Extremity Strength Assessment Bilaterally Impaired Comments Strength Comments Generalized weakness in BUEs M9 OT- IP Assessment and Plan Start: 09/07/20 13:25 Freq: Status: Active Protocol: Document 09/07/20 13:26 RM (Rec: 09/07/20 13:46 RM [id number]) OT Summary Assessment and Plan Potential Rehabilitation Potential Good Analytic Complexity at Evaluation Moderate Summary OT Impairments Strength,Balance,Functional Mobility,Dressing,Toileting, Bathing,Toilet Transfers, Shower Transfers,Activity Tolerance Progress Towards Goals Progressing Toward Goals Assessment Summary Patient is a 39 year old male admitted for DKA, new onset diabetes. He has had persistent elevated blood sugars that are being addressed with insulin and acute renal failure that has been improving. With AM session he was very drowsy with difficulty sustaining attention and CGA with transfer to chair. However, in PM more alert and tolerating ambulation in room and into BR with transfer to toilet and shower with SBA. Patient goal to return home with his . Discussed plan to trial shower assessment tomorrow after PT stair training pending activity tolerance. Also discussed plan to stay on first floor initially until feeling stronger and recommendation for shower chair. Will benefit from OT to improve strength and activity tolerance for self- care with patient agreeable to plan. Goals Dressing Goal Independent Toileting Goal Independent Bathing Goal Standby Assistance Toilet Transfer Goal Independent Shower Transfer Goal Standby Assistance Days to Meet Goals 2 Frequency of Treatment Frequency Of Treatment Once a Day Treatment Plan OT Treatment Plan ADL Training,Functional Mobility,Therapeutic Exercises ,Patient/Family Education, Discharge Planning Other Treatment Recommendations and Next shower assessment after PT Treatment Focus stair training, pending activity tolerance Discharge Recommendations OT Discharge Recommendations Home with Assistance, Outpatient PT Home Equipment Needs shower chair Transportation Needs at Discharge Private Vehicle
--- NOTE | 2020-09-07 14:05 | PC.NURSE ---
Day Shift Note Patient successfully checked own blood glucose after verbal instructions given. Discussed sliding scale, timing of Novolog injections with mealtime, and how to attach needle to pen and dial in the ordered dose. Pt gave own insulin injection to abdomen with cueing, did well. at bedside and asking appropriate questions. Pt denied any questions. Sitting up in chair, more alert today but still drowsy/sleeping. Pt moved to room 211 at this time with all belongings from room 231.
[2020-09-07] MEDS: ATORVASTATIN 20 MG TABLET 40 MG PO (21:46)
[2020-09-08] VITALS (7 sets, daily range): BP systolic 149–160; BP diastolic 87–98; PULSE 93–107; RESP 18–20; TEMP 36.1–37.1; O2SAT 93–98
--- NOTE | 2020-09-08 00:54 | PC.NURSE ---
Addendum entered by Celeste Ervin R.N. 09/08/20 04:37: Patient off CPAP at this time and reports O2 sat monitor dropping down into 80's x 3 so patient placed on oxygen per NC at 0.5L/min and will titrate up as needed to maintain sats. Patient reports feeling light headed but BP is 154/98. Original Note: Patient is alert and oriented. Breath sounds CTA with sat of 97%; currently on CPAP with oxygen bled in at 0.5L/min. HRR but tachy in low 100's. BP elevated at 160/91; was placed on Amlodipine yesterday. Denies nausea. BT present and abdomen is soft. Voiding per urinal; denies dysuria, frequency or urgency. Able to move himself in bed. Gait not assessed but evening RN reports he is up with 1 assist due to weakness. Wearing bilateral calf SCD's. Denies pain. Fall risk score is moderate but patient/ verbalize understanding of need for staff assist and agree to call for assist when getting out of bed.
[2020-09-08] MEDS: LACTATED RINGERS 1,000 ML 84 ML IV (06:10)
[2020-09-08 07:08] LABS: Blood Urea Nitrogen 27 mg/dL (9-20); Calcium 8.3 mg/dL (8.4-10.2); Carbon Dioxide 25 mmol/L (22-32); Chloride 110 mmol/L (98-107); Estimated Glomerular Filt Rate 45.9 mL/min (>60); Glucose 202 mg/dL (70-100); HEMOLYSIS < 15 (0-50); Potassium 3.2 mmol/L (3.4-5.1); Sodium 137 mmol/L (137-145)
[2020-09-08] MEDS: INSULIN ASPART 100 UNIT/ML INSULN PEN SUBCUT ×2 (08:31→12:57)
[2020-09-08] MEDS: INSULIN ASPART 100 UNIT/ML INSULN PEN 10 UNIT SUBCUT ×2 (08:33→13:01)
--- NOTE | 2020-09-08 10:07 | PM.DS.1 ---
History of Present Illness History of Present Illness Date Patient Seen: 09/08/20 Chief complaint: fatigue,disoriented, pain all over Narrative: This is a 39-year-old male who comes to the emergency department with complaint of feeling fatigued, generally unwell, he states he has had some blurred vision. He has had some lower back pain on both sides that he has noted for several days. He states symptoms sort of started Tuesday to have been progressive. He denies fevers, no chest pain, no shortness of breath, no nausea or vomiting. Denies any abdominal pain patient has had polyuria as well as polydipsia, he denies any dysuria. No issues with bowel movements or swelling in his extremities. Patient reports a history of sleep apnea and uses a CPAP at night but no other known past medical history, patient has not been following regularly with a physician. No prior surgeries. No allergies to medications. Patient does not take any medications regularly. No tobacco, alcohol or illicit. He states his father has diabetes but no other family history. Patient has been seen in the past at the [facility]. Patient's vital upon presentation temp 98?, BP 162/95, HR 125, RR 16, SaO2 98%, the ABGs: PH 7.2, pCO2 24.3, HC03 10, CO2 10, excess -18, anion gap of 26 lactate 2.2, GFR 49.6, BUN 31, chloride 102, bicarb 8, creatinine 1.58, potassium 5.2, glucose 597, ALT 83, procalcitonin 0.08. CT KUB showed severe hepatic stenosis. Patient was admitted for DKA, new onset diabetes. Discharge Providers Provider Date of admission: 09/04/20 21:14 Discharge Date: 09/08/20 Consults: 09/04/20 21:53 Consult to Dietitian, Adult Routine Comment: new on set DM Reason For Exam: new on set DM 09/04/20 21:54 Consult to Discharge Planning Routine Comment: Consult to Occupational Therapy Evaluate & Treat Comment: Physician Instructions: Evaluate and treat Consult to Physical Therapy Evaluate & Treat Comment: Physician Instructions: Evaluate and Treat 09/04/20 23:09 Consult to Respiratory Therapy Evaluate & Treat Comment: pt sleeps with CPAP Physician Instructions: Evaluate and treat 09/05/20 05:36 Consult After Hours PICC Line RN Stat Comment: 09/06/20 10:47 Consult to Dietitian, Adult Routine Comment: diabetic teaching/education Reason For Exam: new onset diabetes 09/07/20 12:05 Consult to Home Health Routine Comment: Reason For Exam: Home Health RN, P.T, OT. Discharge provider: Annie Hannah MD Summary Hospital Course Discharge Diagnosis: 1. Diabetic ketoacidosis now resolved 2. New onset diabetes 3. Obstructive sleep apnea 4. Hypertension 5. Acute renal failure 6. Hypovolemic shock, present on admission, now resolved 7. Hypokalemia Hospital Course: Patient was admitted to the hospital for for diabetic ketoacidosis. The patient required an insulin infusion for 24 hours. He was switched to twice daily Lantus plus pre meal insulin. His hemoglobin A1c was 12.8. He and his underwent diabetic Education. His blood sugars have improved although not normalized. Sugars are now in the 200s and trending in the right direction. The patient was also found to have acute renal failure. He received IV hydration with improvement of his renal function. He initially was found to have hypovolemic shock which responded to IV fluids. He required pressors which were quickly tapered. Patient was noted to be hypertensive once his shock was resolved. He was placed on low-dose EWA-inhibitor in addition to amlodipine for blood pressure control. The patient has a follow-up appointment with Dr. Rueda at the [facility]. He made slow but steady improvement and was deemed appropriate for discharge home. Exam Vital Signs (past 8 hours): - 09/08/20 03:09 09/08/20 04:21 09/08/20 07:00 Temperature 97.3 F L Pulse Rate 105 H Respiratory Rate 20 Blood Pressure 154/98 H Pulse Oximetry 93 94 97 09/08/20 07:27 09/08/20 07:57 Temperature 97.0 F L Pulse Rate 107 H 99 H Respiratory Rate 18 18 Blood Pressure 149/97 H Pulse Oximetry 95 98 Oxygen Delivery Method Room Air Oxygen Flow Rate 0 Narrative Exam Narrative: Pleasant gentleman in no obvious distress Lungs decreased breath but clear to auscultation Cardiac exam: regular rate and rhythm normal S1-S2 with a 2/6 systolic ejection Abdomen: Soft nontender nondistended Extremities: Trace edema Objective Labs Result Diagrams: 09/07/20 06:00 09/08/20 06:18 Labs: Laboratory Results - last 24 hr 09/08/20 06:18 Sodium 137 Potassium 3.2 L Chloride 110 H Carbon Dioxide 25 BUN 27 H Creatinine 1.69 H Estimated GFR 45.9 L BUN/Creatinine Ratio 16.0 Glucose 202 H D Calcium 8.3 L PFSH Medical History (Updated 09/05/20 @ 07:37 by KENDRICK Payton) Sleep apnea with use of continuous positive airway pressure (CPAP) Family History Father Diabetes mellitus Social History household members: spouse and children Smoking Status: Never smoker Discharge Assessment & Plan Assessment and Plan Assessment: 1. Diabetic ketoacidosis, present on admission, now resolved 2. New onset diabetes 3. Hypovolemic shock, present on admission, now resolved 4. Hypertension 5. Acute renal failure Plan of Treatment: Discharge home on medications as prescribed Patient to follow-up with his primary care provider Dr. Rueda the [employer] [facility] on Tuesday Discharge Plan Discharge Plan Patient Disposition: Home Discharge orders & Medications Prescriptions: New atorvastatin [Lipitor] 20 mg Tablet 40 mg PO BEDTIME Qty: 30 RF: 0 amlodipine [Norvasc] 5 mg Tablet 10 mg PO DAILY Qty: 30 RF: 0 aspirin 81 mg Tablet,Delayed Release (Dr/Ec) 81 mg PO DAILY Qty: 30 RF: 0 insulin aspart U-100 [Novolog Flexpen U-100 Insulin] 100 unit/mL (3 mL) Insulin Pen 10 unit SUBCUT ACHS Qty: 30 RF: 0 lisinopril 10 mg tablet 10 mg PO DAILY Qty: 30 RF: 0 Lantus Solostar U-100 Insulin 100 unit/mL (3 mL) insulin pen 45 unit SUBCUT BID Qty: 15 RF: 0 Diet/Activity/Treatments Diet: Carb-consistent/Diabetic, Low-fat and Low-sodium
[2020-09-08] MEDS: AMLODIPINE 5 MG TABLET 10 MG PO (10:16)
[2020-09-08] MEDS: ASPIRIN EC 81 MG TABLET PO (10:16)
--- NOTE | 2020-09-08 10:16 | OT.IP.TRT ---
Current Diagnoses Type 1 diabetes mellitus with ketoacidosis without coma (09/04/20) Occupational Therapy Treatment Note M2 OT-IP Current Condition Start: 09/07/20 13:25 Freq: Status: Active Protocol: Document 09/07/20 13:26 RM (Rec: 09/07/20 13:46 RM [id number]) Occupational Therapy Current Condition Current Condition Evaluation Date 09/07/20 Treatment Diagnosis diabetic keto acidosis Diagnosis Onset Date 09/04/20 M3 OT- IP Subjective and Pain Start: 09/07/20 13:25 Freq: Status: Active Protocol: Document 09/08/20 10:24 [facility] (Rec: 09/08/20 10:33 [facility] [id number]) OT- Subjective Occupational Therapy Visit Type Type Treatment Note Visit Start Time 09:53 Visit Stop Time 10:16 Total Visit Minutes 23 Occupational Therapy Visit Comments Patient Comments Pt complaining of not able to more his right hand very well. Noted IV leaking and notified nursing. Patient/Caregiver Goals TO go home. OT Pain Assessment Pain When Pain Assessed At Rest Pain Present Pain Present Pain Reported M5 OT- IP IADL's Start: 09/07/20 13:25 Freq: Status: Active Protocol: Document 09/07/20 13:26 RM (Rec: 09/07/20 13:46 RM [id number]) OT-Instrumental Activities of Daily Living Deficits IADL Deficits Identified Deficits M6 OT- IP Functional Cognition Start: 09/07/20 13:25 Freq: Status: Active Protocol: Document 09/08/20 10:24 [facility] (Rec: 09/08/20 10:33 [facility] [id number]) Cognitive Factors Limiting Selfcare Function Cognitive Ability Level of Alertness Alert Patient Orientation Name,Age,Birthday,Month,Date, Year,Day of Week,Place, Situation Attention Span Ability Capable of Focused Attention, Capable of Sustained Attention Ability to Follow Commands Able to Follow Multi-Step Commands Cognitive Comments Cognitive Assessment Comments Pt appears to be back at baseline for cognitive needs. M8 OT- IP Objective Assessments Start: 09/07/20 13:25 Freq: Status: Active Protocol: Document 09/08/20 10:24 [facility] (Rec: 09/08/20 10:33 [facility] [id number]) OT- Coordination Assessment Comments Coordination Comments Pt's states do to right hand swelling have to assist with set-up for eating needs today. OT Sensation Assessment Edema Edema Comments Right arm swollen throughout possible due to IV leaking. Able to do retrograde massage and educated to elevate his right arm and open and close his hand to assist to pump out the excess fluid. M9 OT- IP Assessment and Plan Start: 09/07/20 13:25 Freq: Status: Active Protocol: Document 09/08/20 10:24 [facility] (Rec: 09/08/20 10:33 [facility] [id number]) OT Summary Assessment and Plan Potential Rehabilitation Potential Good Analytic Complexity at Evaluation Moderate Summary OT Impairments Strength,Balance,Functional Mobility,Dressing,Toileting, Bathing,Toilet Transfers, Shower Transfers,Activity Tolerance Progress Towards Goals Progressing Toward Goals Assessment Summary Pt much improved today and able to toilet on his own, however needing assist for FMS due to right UE swollen possibly due to IV leak. Nursing able to take out IV and OT able to assist for gentle retrograde massage and stretching to encourage movement of the lymph fluids. Pt to have his to assist him at home. Both pt and agreed best to have a shower chair at this time at home for showering needs. Goals Bathing Goal Standby Assistance Shower Transfer Goal Standby Assistance Days to Meet Goals 1 Frequency of Treatment Frequency Of Treatment Once a Day Treatment Plan OT Treatment Plan ADL Training,Functional Mobility,Therapeutic Exercises ,Patient/Family Education, Discharge Planning Discharge Recommendations OT Discharge Recommendations Home with Assistance Home Equipment Needs shower chair Transportation Needs at Discharge Private Vehicle
[2020-09-08] MEDS: INSULIN GLARGINE 100 UNIT/ML 3ML PEN 40 UNIT SUBCUT (10:19)
--- NOTE | 2020-09-08 10:26 | PT.IPTN ---
Current Diagnoses Type 1 diabetes mellitus with ketoacidosis without coma (09/04/20) Physical Therapy Treatment Note M2 PT-IP Current Condition Start: 09/06/20 08:49 Freq: NEEDED Status: Active Protocol: Document 09/06/20 11:02 [facility] (Rec: 09/06/20 12:15 [facility] [id number]) Physical Therapy Current Condition Current Condition Evaluation Date 09/06/20 Treatment Diagnosis 09/05/20 M3 PT-IP Subjective Start: 09/06/20 08:49 Freq: NEEDED Status: Active Protocol: Document 09/08/20 10:26 [facility] (Rec: 09/08/20 11:45 [facility] [id number]) Subjective Physical Therapy Visit Type Type Treatment Note Visit Start Time 10:26 Visit Stop Time 10:36 Total Visit Minutes 10 Notes present Number of ASSISTANT FINANCIAL ACCOUNTANT Visits 2 Physical Therapy Visit Comments Patient Comments pt agreeable to do therapy Patient Goals go home M4 PT-IP Mobility and Gait Start: 09/06/20 08:49 Freq: NEEDED Status: Active Protocol: Document 09/08/20 10:26 [facility] (Rec: 09/08/20 11:45 [facility] [id number]) PT-Transfer Assessment Sit to and From Stand Sit to and from Stand Standby Assistance Equipment Transfer Assistive Device Gait Belt Transfers Transfer Destination Chair Transfer Technique Stand Step Pivot Transfer Ability Level of Assist Standby Assistance Comments Mobility Comments Pt with improved stability with transfer and sit<>stand, pt able to stand from low chair w/o use of UE's Gait Assessment Gait Gait Assistance Required: Standby Assistance Distance (Feet) 250 Able to Maintain Weight Bearing Status Yes During Gait Assistive Devices Assistive Device Gait Belt Orthotic/Prosthetic Devices or Brace: No Gait Deviations General Gait Pattern Within Normal Limits Comments Gait Comments Pt ambulated to stairs climbing two sets of three steps then descending and ascending stairs in stairwell SBA. Pt then ambulated in [place] SBA around [facility] ~210ft. Pt states feeling 80% back to his baseline. Stair Climbing Assessment Evaluation Level of Assist On Stairs Standby Assistance Devices Stair Climbing Assistive Devices Right Railing Technique/Endurance Stair Climbing Direction Ascend and Descend Stair Climbing Technique Step Over Step Number of Steps Climbed 16 Comments Stair Climbing Comments Pt able to climb stairs SBA. M5 PT-IP Objective Assessments Start: 09/06/20 08:49 Freq: NEEDED Status: Active Protocol: Document 09/06/20 11:02 [facility] (Rec: 09/06/20 12:15 [facility] [id number]) Orientation Orientation/Cognition Level of Alertness Lethargic Orientation Name,Date,Place,Situation Language Function Ability No Deficits Noted Safety Awareness Understands Safety Issues Memory Description No Deficits Noted Gross Range of Motion Upper Extremity ROM Assessment Within Functional Limits Lower Extremity ROM Assessment Within Functional Limits Strength Upper Extremity Strength Assessment Within Functional Limits Lower Extremity Strength Assessment Within Functional Limits Comments Strength Comments No MMT due to lethargy Coordination Assessment Gross Coordination Gross Coordination WNL Sensation Assessment Sensation Gross Sensation WNL Comments Sensation Comments denied N/T Muscle Tone Muscle Tone WNL Yes M6 PT-IP Treatment Start: 09/06/20 08:49 Freq: NEEDED Status: Active Protocol: Document 09/06/20 11:02 [facility] (Rec: 09/06/20 12:15 [facility] [id number]) Physical Therapy Treatment Other Treatments Other Treatment Performed shallow knee bends x 3 at bedside prior to walking M7 PT-IP Assessment and Plan Start: 09/06/20 08:49 Freq: NEEDED Status: Active Protocol: Document 09/08/20 10:26 [facility] (Rec: 09/08/20 11:45 [facility] [id number]) PT Summary Assessment and Plan Potential Rehabilitation Potential Good Status of Condition at Evaluation Evolving Summary Impairments Transfers,Gait,Activity Tolerance Progress Towards Goals Progressing Toward Goals Assessment Summary Pt awake and responding appropriately even smiling today. Pt able to ambulate ~ 250ft w/o AD SBA and climb 16 stairs SBA, pt seems able to d /c with assist of when medically stable. Goals Bed Mobility Goal Independent Transfer Goal Independent Gait Goal Independent Gait Distance 200' Frequency of Treatment Frequency Of Treatment Once a Day Treatment Plan Physical Therapy Treatment Plan Bed Mobility Training,Transfer Training,Gait Training, Therapeutic Exercise,Discharge Planning Recommendations To Nursing Amount of Assist Needed 1 Person Assist Discharge Recommendations PT Discharge Recommendations Home with Assistance Transportation Needs at Discharge Private Vehicle
[2020-09-08] MEDS: POTASSIUM CHLORIDE 20 MEQ TAB 40 MEQ PO (10:51)
--- NOTE | 2020-09-08 11:36 | DIET.PN ---
Dietary Progress Note Assessment: Mr. Burrell is a 39-year-old male who came to the emergency department with complaint of feeling fatigued, generally unwell, and blurred vision. He has had some lower back pain on both sides that he has noted for several days. Endorses polyuria as well as polydipsia. No issues with bowel movements or swelling in his extremities. He states his father has diabetes but no other family history. Patient has been seen in the past at the [facility]. Patient was admitted for DKA, new onset diabetes. HT: 73in WT: 272lb UBW: BMI: 36 Labs (upon admission): A1c: 12.3, PH 7.2, pCO2 24.3, HC03 10, CO2 10, anion gap of 26 , lactate 2.2, GFR 49.6, BUN 31, chloride 102, bicarb 8, creatinine 1.58, potassium 5.2, glucose 597, ALT 83, procalcitonin 0.08. MNA: 14 Sam: 23 Nutrition Diagnosis: Altered Nutrition related labs related to impaired glucose metabolism, lack of previous exposure to accurate nutrition information as evidenced by pt report, dx of diabetes, previous diet high in refined carbohydrates.? Interventions: 1. Discussed pathophysiology of diabetes. Reviewed A1c and its correlation to blood glucose numbers. Discussed recommended BG ranges. 2. Discussed importance of self-monitoring, how often, and when to check. 3. Reviewed hyper/hypoglycemia and treatment. 4. Discussed impact of nutrition/diet on blood sugar control.? Discussed fed versus non-fed state.?? 5. Discussed the effect of carbohydrates/protein/fat on blood sugar control.? Stressed importance of consistent carbohydrate intake at each meal and provided instructions for recommended servings/portions of carbohydrates/protein per meal. Provided pt with educational material. 6. Reviewed carbohydrate counting and measuring carbohydrate content via serving sizes and reading nutrition labels.? Provided handouts.?? 7. Stressed importance of meal timing and not going >4-5 hours between meals. Encouraged adding protein to each meal to support glucose control. 8. Provided information on diabetes education program. Pt will discuss with primary provider. Diet Order: CCD (large) EER: [id number] fred[place]ick (18-20cal/kg) weight loss; Pro: 120-140g (1-1.2g/kg) Monitoring/Evaluations: labs, PO intake, need for additional education
--- NOTE | 2020-09-08 13:02 | CM.DPC ---
DCP: continued: case discussed in Team Rounds with Dr. Hannah and PT noting that HH not an appropriate plan. Pt is up, mobilizing, has met with switchboard wire worker helper and plans to discuss a referral to [facility] diabetes clinic with his PCP. Checked in with pt and his and went over above. Both say they are comfortable with this and did say she knew that HH was more for pt's who were homebound. Pt is finishing lunch and will leave for home as soon as RN has completed the d/c paperwork. RN is aware that HH is no longer part of the plan. Have spoken with Fernando/Deepa DIAZ ans updated him re the d/c dispo change.
[2020-09-08 16:36] LABS: Osmolality, Serum 339 mOsmol/kg (275-295)
[2020-09-10 13:10] LABS: GAD-65 Antibody <5.0 U/mL (0.0-5.0)
== END 2020-09-08 01:15 | disposition home or self-care (01) | DRG 637 ==
LOC: ED 21:13 → AC 21:15 → ICU 09-05 14:46 → AC 09-07 15:22 → ICU 09-08 13:39
PROVIDERS: Emergency Medicine; Internal Medicine; Admitting Provider Nurse Practitioner Family; Emergency Provider Emergency Medicine; Referring Provider Emergency Medicine; Visit Provider Nurse Practitioner Family
DX: E11.10 Type 2 diabetes mellitus with ketoacidosis without coma (principal); R57.1 Hypovolemic shock; N17.9 Acute kidney failure, unspecified; I95.9 Hypotension, unspecified; G47.33 Obstructive sleep apnea (adult) (pediatric); Z20.828 Contact with and (suspected) exposure to other viral communicable diseases
CPT/HCPCS: 36415; 36592; 36600; 71045; 74176; 76770; 80048; 80053; 80061; 80305; 80329; 81001; 81003; 82009; 82150; 82533; 82805; 82962; 83036; 83525; 83605; 83690; 83735; 83880; 83930; 84100; 84145; 84443; 84681; 85025; 85610; 85730; 86341; 87040; 87502; 87635; 87797; 93005; 94660; 94762; 96360; 96361; 97116; 97162; 97166; 97530; 97535; 99284; 99291; 99292; G0480; J1642; J1650; J2270; J2405; J7050